=== PATIENT | male | born 1960 | race Caucasian/White ===

== ENCOUNTER 2021-06-07 21:45 | Inpatient (IN) | payer OTHER, MEDICAID ==
[~2021-06-07] VITALS: Ht 182.9 cm; Wt 109.0 kg
[2021-06-07] MEDS ORDERED: FUROSEMIDE 40 MG/4 ML VIAL IV ONE (22:00)
[2021-06-07 22:10] LABS: Basophils # (auto) 0.1 10 ^3/uL (0-0.2); Basophils % (auto) 0.8 % (0.0-2.0); Eosinophils # (auto) 0 10 ^3/uL (0-0.8); Eosinophils % (auto) 0.5 % (0.0-7.0); Hematocrit 40.4 % (41.0-53.0); Hemoglobin 12.7 g/dL (13.5-17.5); Lymphocytes # (auto) 0.8 10 ^3/uL (0.4-5.4); Lymphocytes % (auto) 7.7 % (10.0-50.0); Mean Corpuscular Hemoglobin 27.7 pg (28.0-32.0); Mean Corpuscular Hgb Conc. 31.5 g/dL (32.0-36.0); Mean Corpuscular Volume 88.1 fL (80.0-100.0); Monocytes % (auto) 10.2 % (0.0-12.0); Neutrophils # (auto) 7.9 10 ^3/uL (1.6-8.6); Neutrophils % (auto) 80.8 % (37.0-80.0); Nucleated Red Blood Cells % 0.1 %; Red Blood Cells 4.59 10^6/uL (4.5-5.90); Red Cell Distribution Width 14.6 % (11.8-14.3); White Blood Cell 9.8 10^3/uL (4.4-10.8)
[2021-06-07 22:19] VITALS: BP 142/70
[2021-06-07 22:27] LABS: Albumin 2.4 g/dL (3.4-5.0); BUN/Creatinine Ratio 16.6; Calcium 8.4 mg/dL (8.5-10.1); Magnesium 2.4 mg/dL (1.6-2.6)
[2021-06-07 22:36] LABS: INR 0.99 (0.9-1.15); Partial Thromboplastin Time 25.9 sec (23.6-33.0)
[2021-06-07 22:38] LABS: Bilirubin, Total 0.2 mg/dL (0.2-1.0); Total Protein 6.8 g/dL (6.4-8.2)
[2021-06-07 22:43] LABS: Potassium 6.6 mmol/L (3.5-5.1)
[2021-06-07] MEDS ORDERED: DEXTROSE (50%) 50ML SYRG IV ONE (23:00)
[2021-06-07] MEDS ORDERED: InsuLIN REG 1unit/0.01ml Soln (100units/ml) IV ONE (23:00)
[2021-06-07] MEDS ORDERED: ALBUTEROL SULF 2.5 MG/0.5ML(0.5%) NEB SOLN NEB ONE (23:00)
[2021-06-07] MEDS ORDERED: ENOXAPARIN SOD 100 MG/1 ML SYRINGE SC ONE (23:15)
[2021-06-08] VITALS (14 sets, daily range): BP systolic 94–152; BP diastolic 55–76
[2021-06-08] MEDS ORDERED: DOCUSATE SOD 100 MG CAP PO PRN (00:45)
[2021-06-08] MEDS ORDERED: ONDANSETRON HCL 4 MG/2 ML VIAL IV PRN (00:45)
[2021-06-08] MEDS ORDERED: HYDROcodone-ACET 5/325MG TAB PO PRN (00:45)
[2021-06-08] MEDS ORDERED: DEXTROSE (50%) 50ML SYRG IV PRN (00:45)
[2021-06-08] MEDS ORDERED: SODIUM ZIRCONIUM CYCL 10 GM PAK PO ONE ×2 (00:45→09:00)
[2021-06-08] MEDS ORDERED: NITROGLYCERIN 0.4 MG SL TAB SL PRN (00:45)
[2021-06-08] MEDS ORDERED: ETOMIDATE (2MG/ML) 20ML VIAL IV ONE ×2 (01:50→02:00)
[2021-06-08] MEDS ORDERED: ROCURONIUM 10MG/ML 10ML VIAL IV ONE ×2 (01:50→02:00)
[2021-06-08] MEDS ORDERED: MIDAZOLAM DRIP 50 mg/50mL 50 ML IV ONE (01:51)
[2021-06-08] MEDS: NOREPINEPHRINE 8 MG/250ML KIT 250 ML IV SCH ×2 (02:00→08:26)
[2021-06-08] MEDS: MIDAZOLAM DRIP 50 mg/50mL 50 ML IV SCH ×4 (02:26→20:51)
[2021-06-08 03:43] LABS: Urine Bacteria NONE SEEN /hpf (None Seen); Urine Blood 1+ /uL (Negative); Urine Specific Gravity 1.014 (1.001-1.035); Urine WBC 1 /hpf (0 - 3)
[2021-06-08] MEDS ORDERED: AZITHROMYCIN 500MG/ 250ML 250 ML IV SCH (04:00)
[2021-06-08] MEDS: fentaNYL Drip 2500mCg/250mlNS 250 ML IV SCH (04:40)
[2021-06-08] MEDS: FUROSEMIDE 40 MG/4 ML VIAL IV SCH ×2 (06:15→17:16)
[2021-06-08] MEDS: SODIUM CHLOR 0.9% PF (SALINE LOCK) 10ML VIAL/SYR IV SCH ×3 (06:17→22:00)
[2021-06-08] MEDS: InsuLIN REG 1unit/0.01ml Soln (100units/ml) SC SCH ×4 (07:00→23:07)
[2021-06-08] MEDS: ACCU-CHEK COMFORT CURVE STRIP VI SCH ×4 (07:00→22:00)
[2021-06-08 08:12] LABS: Basophils # (auto) 0.1 10 ^3/uL (0-0.2); Basophils % (auto) 1.5 % (0.0-2.0); Eosinophils # (auto) 0.1 10 ^3/uL (0-0.8); Eosinophils % (auto) 1.1 % (0.0-7.0); Hematocrit 34.7 % (41.0-53.0); Lymphocytes # (auto) 1.4 10 ^3/uL (0.4-5.4); Lymphocytes % (auto) 16.5 % (10.0-50.0); Mean Corpuscular Hemoglobin 27.9 pg (28.0-32.0); Mean Corpuscular Hgb Conc. 31.7 g/dL (32.0-36.0); Mean Corpuscular Volume 87.9 fL (80.0-100.0); Monocytes # (auto) 0.8 10 ^3/uL (0-1.3); Monocytes % (auto) 8.7 % (0.0-12.0); Neutrophils # (auto) 6.3 10 ^3/uL (1.6-8.6); Neutrophils % (auto) 72.2 % (37.0-80.0); Red Blood Cells 3.95 10^6/uL (4.5-5.90); Red Cell Distribution Width 14.6 % (11.8-14.3); White Blood Cell 8.7 10^3/uL (4.4-10.8)
[2021-06-08] MEDS: ASCORBIC ACID 500 MG TAB PO SCH ×2 (08:14→22:00)
[2021-06-08] MEDS: MULTIPLE VITAMIN TAB PO SCH (08:15)
[2021-06-08] MEDS: ZINC SULFATE 220mg CAP or TAB PO SCH (08:15)
[2021-06-08 08:29] LABS: Albumin 1.9 g/dL (3.4-5.0); Calcium 7.6 mg/dL (8.5-10.1)
[2021-06-08 08:35] LABS: Potassium 6.4 mmol/L (3.5-5.1)
[2021-06-08 08:36] LABS: BUN/Creatinine Ratio 17.3; Bilirubin, Total 0.4 mg/dL (0.2-1.0); Total Protein 5.9 g/dL (6.4-8.2)
[2021-06-08] MEDS ORDERED: CALCIUM GLUC 1,000mg/50ml-NS 50 ML IV ONE (09:00)
[2021-06-08] MEDS ORDERED: ALBUTEROL SULF 2.5 MG/0.5ML(0.5%) NEB SOLN NEB ONE (09:00)
[2021-06-08] MEDS ORDERED: InsuLIN REG 1unit/0.01ml Soln (100units/ml) IV ONE (09:00)
[2021-06-08] MEDS ORDERED: SODIUM BICARBONATE 8.4 % INJ 50ML VIAL IV ONE (09:00)
[2021-06-08] MEDS ORDERED: DEXTROSE (25%) 10 ML SYRG IV ONE (09:00)
[2021-06-08] MEDS ORDERED: FUROSEMIDE 100 MG/10ML VIAL IV ONE (09:15)
[2021-06-08] MEDS ORDERED: SODIUM ZIRCONIUM CYCL 10 GM PAK PO SCH (10:00)
[2021-06-08] MEDS ORDERED: HEPARIN SODIUM (PORCINE) 5000 UNITS/ML 1ML VIAL SC SCH (10:00)
[2021-06-08] MEDS ORDERED: FAMOTIDINE (10MG/ML) 2ML VL IV SCH (10:00)
[2021-06-08] MEDS: SODIUM BICARBONATE 50ML VIAL 50 ML in SOD CHL 0.45% 1,000 ML IV SCH ×2 (10:26→23:15)
[2021-06-08] MEDS ORDERED: ENOXAPARIN SOD 100 MG/1 ML SYRINGE SC ONE (11:45)
[2021-06-08] MEDS ORDERED: VANCOMYCIN PER PHARMACY 0 MG IV SCH (14:00)
[2021-06-08] MEDS ORDERED: PIPERACILLIN-TAZOB 3.375GM 100 ML IV ONE (14:00)
[2021-06-08] MEDS: SODIUM ZIRCONIUM CYCL 10 GM PAK PO SCH ×2 (14:15→22:00)
[2021-06-08] MEDS: ACETAMINOPHEN 325 MG TAB PO PRN (16:21)
[2021-06-08 16:54] LABS: BUN/Creatinine Ratio 17.3; Calcium 8.4 mg/dL (8.5-10.1); Potassium 5.5 mmol/L (3.5-5.1)
[2021-06-08] MEDS ORDERED: VANCOMYCIN 1GM/250ML 250 ML IV ONE (17:00)
[2021-06-08] MEDS ORDERED: FUROSEMIDE 100 MG/10ML VIAL IV SCH (18:00)
[2021-06-08 18:53] LABS: Calcium 8.3 mg/dL (8.5-10.1); Potassium 5.2 mmol/L (3.5-5.1)
[2021-06-08 18:58] LABS: BUN/Creatinine Ratio 16.6
[2021-06-08] MEDS: PIPERACILLIN-TAZOB 3.375GM 100 ML IV SCH (20:50)
[2021-06-08] MEDS: ENOXAPARIN SOD 150 MG/1 ML SYRINGE SC SCH (22:00)
[2021-06-09] VITALS (97 sets, daily range): BP systolic 91–185; BP diastolic 48–100
[2021-06-09] MEDS: fentaNYL Drip 2500mCg/250mlNS 250 ML IV SCH ×2 (02:00→22:00)
[2021-06-09] MEDS: PIPERACILLIN-TAZOB 3.375GM 100 ML IV SCH (02:00)
[2021-06-09 04:12] LABS: Basophils # (auto) 0.1 10 ^3/uL (0-0.2); Basophils % (auto) 1.3 % (0.0-2.0); Eosinophils # (auto) 0.1 10 ^3/uL (0-0.8); Eosinophils % (auto) 1.3 % (0.0-7.0); Hemoglobin 12.2 g/dL (13.5-17.5); Lymphocytes # (auto) 1.1 10 ^3/uL (0.4-5.4); Lymphocytes % (auto) 11.5 % (10.0-50.0); Mean Corpuscular Hemoglobin 27.5 pg (28.0-32.0); Mean Corpuscular Hgb Conc. 31.4 g/dL (32.0-36.0); Mean Corpuscular Volume 87.7 fL (80.0-100.0); Monocytes # (auto) 1.1 10 ^3/uL (0-1.3); Monocytes % (auto) 11.8 % (0.0-12.0); Neutrophils # (auto) 7.2 10 ^3/uL (1.6-8.6); Neutrophils % (auto) 74.1 % (37.0-80.0); Nucleated Red Blood Cells % 0.1 %; Red Blood Cells 4.45 10^6/uL (4.5-5.90); Red Cell Distribution Width 14.5 % (11.8-14.3); White Blood Cell 9.7 10^3/uL (4.4-10.8)
[2021-06-09 04:26] LABS: INR 1.07 (0.9-1.15)
[2021-06-09 04:36] LABS: Calcium 8.3 mg/dL (8.5-10.1); Magnesium 2.7 mg/dL (1.6-2.6); Potassium 4.6 mmol/L (3.5-5.1)
[2021-06-09 04:43] LABS: BUN/Creatinine Ratio 16.4; Bilirubin, Total 0.4 mg/dL (0.2-1.0); Phosphorus 4.6 mg/dL (2.5-4.90); Total Protein 6.7 g/dL (6.4-8.2)
[2021-06-09] MEDS ORDERED: SODIUM BICARBONATE 8.4 % INJ 50ML VIAL IV ONE (04:51)
[2021-06-09] MEDS: SODIUM BICARBONATE 50ML VIAL 50 ML in SOD CHL 0.45% 1,000 ML IV SCH (04:59)
[2021-06-09] MEDS ORDERED: LABETALOL HCL 5 MG/ML 4ML SYRINGE IV ONE (05:00)
[2021-06-09] MEDS: FUROSEMIDE 40 MG/4 ML VIAL IV SCH ×2 (05:30→18:00)
[2021-06-09] MEDS: SODIUM ZIRCONIUM CYCL 10 GM PAK PO SCH ×3 (06:05→22:32)
[2021-06-09] MEDS: SODIUM CHLOR 0.9% PF (SALINE LOCK) 10ML VIAL/SYR IV SCH ×3 (06:05→21:57)
[2021-06-09] MEDS: InsuLIN REG 1unit/0.01ml Soln (100units/ml) SC SCH ×4 (06:06→22:13)
[2021-06-09] MEDS: ACCU-CHEK COMFORT CURVE STRIP VI SCH ×4 (06:06→22:00)
[2021-06-09] MEDS: ACETAMINOPHEN 325 MG TAB PO PRN (06:20)
[2021-06-09] MEDS: MIDAZOLAM DRIP 50 mg/50mL 50 ML IV SCH ×2 (06:49→15:53)
[2021-06-09] MEDS ORDERED: PROPOFOL 100 ML IV ONE (09:12)
[2021-06-09] MEDS: PROPOFOL 100 ML IV SCH (09:20)
[2021-06-09] MEDS: ASCORBIC ACID 500 MG TAB PO SCH (10:28)
[2021-06-09] MEDS: ZINC SULFATE 220mg CAP or TAB PO SCH (10:28)
[2021-06-09] MEDS: MULTIPLE VITAMIN TAB PO SCH (10:28)
[2021-06-09] MEDS: ENOXAPARIN SOD 150 MG/1 ML SYRINGE SC SCH (10:28)
[2021-06-09] MEDS: FAMOTIDINE (10MG/ML) 2ML VL IV SCH (10:28)
[2021-06-09] MEDS ORDERED: VANCOMYCIN 1GM/250ML 250 ML IV ONE (10:30)
[2021-06-09] MEDS ORDERED: VANCOMYCIN PER PHARMACY 0 MG IV SCH (10:30)
[2021-06-09] MEDS ORDERED: MEROPENEM 1GM IVPB 100 ML IV SCH (13:00)
[2021-06-09] MEDS ORDERED: CLINDAMYCIN 600MG IV 50 ML IV ONE (15:00)
[2021-06-09] MEDS ORDERED: INSULIN LANTUS (GLARGINE) 1 /0.01ml (100units/ml) SC ONE (15:00)
[2021-06-09] MEDS: CLINDAMYCIN 600MG IV 50 ML IV SCH (21:56)
[2021-06-09] MEDS: METOPROLOL TARTRATE 25 MG TAB PO SCH (21:57)
[2021-06-09] MEDS: INSULIN LANTUS (GLARGINE) 1 /0.01ml (100units/ml) SC SCH (22:11)
[2021-06-09] MEDS ORDERED: ROSU20TA14 PO (22:52)
[2021-06-09] MEDS ORDERED: INSUINJ2 SC (22:57)
[2021-06-09] MEDS ORDERED: INSREG3 SC (23:01)
[2021-06-09] MEDS ORDERED: AML5T GT (23:02)
[2021-06-09] MEDS ORDERED: HYDR25TA4 PO (23:02)
[2021-06-09] MEDS ORDERED: ASPI325T4 PO (23:04)
[2021-06-09] MEDS ORDERED: CICL160A2 IN (23:05)
[2021-06-09] MEDS ORDERED: ALBUAER3 IN (23:07)
[2021-06-10] VITALS (98 sets, daily range): BP systolic 91–160; BP diastolic 48–103
[2021-06-10] MEDS: NOREPINEPHRINE 8 MG/250ML KIT 250 ML IV SCH ×2 (02:00→21:46)
[2021-06-10 04:40] LABS: Basophils # (auto) 0.1 10 ^3/uL (0-0.2); Eosinophils # (auto) 0.2 10 ^3/uL (0-0.8); Eosinophils % (auto) 1.7 % (0.0-7.0); Hematocrit 35.9 % (41.0-53.0); Hemoglobin 11.6 g/dL (13.5-17.5); Lymphocytes # (auto) 1.1 10 ^3/uL (0.4-5.4); Lymphocytes % (auto) 8.9 % (10.0-50.0); Mean Corpuscular Hemoglobin 28.2 pg (28.0-32.0); Mean Corpuscular Hgb Conc. 32.4 g/dL (32.0-36.0); Mean Corpuscular Volume 86.9 fL (80.0-100.0); Monocytes # (auto) 1.5 10 ^3/uL (0-1.3); Monocytes % (auto) 11.7 % (0.0-12.0); Neutrophils # (auto) 9.7 10 ^3/uL (1.6-8.6); Neutrophils % (auto) 76.7 % (37.0-80.0); Red Blood Cells 4.13 10^6/uL (4.5-5.90); Red Cell Distribution Width 14.4 % (11.8-14.3); White Blood Cell 12.7 10^3/uL (4.4-10.8)
[2021-06-10 04:53] LABS: Albumin 1.7 g/dL (3.4-5.0); Calcium 8.5 mg/dL (8.5-10.1); Potassium 4.3 mmol/L (3.5-5.1)
[2021-06-10 04:58] LABS: Bilirubin, Total 0.4 mg/dL (0.2-1.0); Total Protein 6.3 g/dL (6.4-8.2)
[2021-06-10] MEDS: PROPOFOL 100 ML IV SCH ×2 (05:00→08:38)
[2021-06-10] MEDS: CLINDAMYCIN 600MG IV 50 ML IV SCH ×3 (05:58→22:00)
[2021-06-10] MEDS: SODIUM ZIRCONIUM CYCL 10 GM PAK PO SCH (05:59)
[2021-06-10] MEDS: ACCU-CHEK COMFORT CURVE STRIP VI SCH ×4 (05:59→22:00)
[2021-06-10] MEDS: SODIUM CHLOR 0.9% PF (SALINE LOCK) 10ML VIAL/SYR IV SCH ×3 (05:59→22:00)
[2021-06-10] MEDS: FUROSEMIDE 40 MG/4 ML VIAL IV SCH ×2 (05:59→17:29)
[2021-06-10] MEDS: InsuLIN REG 1unit/0.01ml Soln (100units/ml) SC SCH ×4 (06:00→22:00)
[2021-06-10] MEDS: INSULIN LANTUS (GLARGINE) 1 /0.01ml (100units/ml) SC SCH ×2 (06:02→22:00)
[2021-06-10] MEDS: FAMOTIDINE (10MG/ML) 2ML VL IV SCH (08:36)
[2021-06-10] MEDS: ENOXAPARIN SOD 150 MG/1 ML SYRINGE SC SCH (08:37)
[2021-06-10] MEDS: fentaNYL Drip 2500mCg/250mlNS 250 ML IV SCH ×2 (08:38→23:03)
[2021-06-10] MEDS: MIDAZOLAM DRIP 50 mg/50mL 50 ML IV SCH ×4 (08:39→23:04)
[2021-06-10] MEDS ORDERED: cefTRIAXone 1GM/50ML D5W 50 ML IV SCH (09:00)
[2021-06-10] MEDS: METOPROLOL TARTRATE 25 MG TAB PO SCH ×2 (12:31→22:00)
[2021-06-10] MEDS ORDERED: levoFLOXacin 250MG 50 ML IV ONE (13:15)
[2021-06-10] MEDS ORDERED: AMIODARONE HCL 200 MG TAB PO ONE (13:15)
[2021-06-10] MEDS: ACETAMINOPHEN 325 MG TAB PO PRN (14:29)
[2021-06-10] MEDS: AMIODARONE HCL 200 MG TAB PO SCH (22:00)
[2021-06-11] VITALS (91 sets, daily range): BP systolic 92–149; BP diastolic 45–73
[2021-06-11 04:18] LABS: Basophils # (auto) 0.1 10 ^3/uL (0-0.2); Basophils % (auto) 0.5 % (0.0-2.0); Eosinophils # (auto) 0.2 10 ^3/uL (0-0.8); Eosinophils % (auto) 1.8 % (0.0-7.0); Hematocrit 34.7 % (41.0-53.0); Lymphocytes # (auto) 1.1 10 ^3/uL (0.4-5.4); Mean Corpuscular Hemoglobin 27.6 pg (28.0-32.0); Mean Corpuscular Hgb Conc. 31.8 g/dL (32.0-36.0); Monocytes # (auto) 1.2 10 ^3/uL (0-1.3); Neutrophils # (auto) 7.7 10 ^3/uL (1.6-8.6); Neutrophils % (auto) 74.7 % (37.0-80.0); Nucleated Red Blood Cells % 0.1 %; Red Blood Cells 3.99 10^6/uL (4.5-5.90); Red Cell Distribution Width 14.5 % (11.8-14.3); White Blood Cell 10.3 10^3/uL (4.4-10.8)
[2021-06-11 04:38] LABS: Calcium 8.5 mg/dL (8.5-10.1); Potassium 4.4 mmol/L (3.5-5.1)
[2021-06-11 04:41] LABS: Albumin 1.4 g/dL (3.4-5.0); BUN/Creatinine Ratio 15.3
[2021-06-11 04:46] LABS: Bilirubin, Total 0.3 mg/dL (0.2-1.0); Total Protein 6.3 g/dL (6.4-8.2)
[2021-06-11] MEDS: FUROSEMIDE 40 MG/4 ML VIAL IV SCH (06:00)
[2021-06-11] MEDS: SODIUM CHLOR 0.9% PF (SALINE LOCK) 10ML VIAL/SYR IV SCH ×3 (06:00→22:00)
[2021-06-11] MEDS: CLINDAMYCIN 600MG IV 50 ML IV SCH ×3 (06:00→21:36)
[2021-06-11] MEDS: MIDAZOLAM DRIP 50 mg/50mL 50 ML IV SCH ×3 (06:58→18:59)
[2021-06-11] MEDS: ACCU-CHEK COMFORT CURVE STRIP VI SCH ×4 (08:43→22:00)
[2021-06-11] MEDS: InsuLIN REG 1unit/0.01ml Soln (100units/ml) SC SCH ×4 (08:44→21:55)
[2021-06-11] MEDS: INSULIN LANTUS (GLARGINE) 1 /0.01ml (100units/ml) SC SCH ×2 (08:44→21:37)
[2021-06-11] MEDS ORDERED: metOLazone 5 MG TAB PO ONE (09:45)
[2021-06-11] MEDS: METOPROLOL TARTRATE 25 MG TAB PO SCH ×2 (10:00→21:54)
[2021-06-11] MEDS: levoFLOXacin 250MG 50 ML IV SCH (11:03)
[2021-06-11] MEDS: ALBUMIN 25% 100 ML IV SCH ×2 (11:03→18:21)
[2021-06-11] MEDS: PROPOFOL 100 ML IV SCH ×2 (11:04→17:00)
[2021-06-11] MEDS: ENOXAPARIN SOD 150 MG/1 ML SYRINGE SC SCH (11:04)
[2021-06-11] MEDS: FAMOTIDINE (10MG/ML) 2ML VL IV SCH (11:33)
[2021-06-11] MEDS: AMIODARONE HCL 200 MG TAB PO SCH ×2 (11:33→21:53)
[2021-06-11] MEDS: FUROSEMIDE INJECTION 100 MG in SODIUM CHL 0.9% 100 ML IV SCH ×3 (11:41→21:00)
[2021-06-11] MEDS: fentaNYL Drip 2500mCg/250mlNS 250 ML IV SCH (12:14)
[2021-06-11] MEDS ORDERED: METOCLOPRAMIDE HCL 5MG/ml INJ 2ml VIAL IV ONE (14:00)
[2021-06-11] MEDS ORDERED: METOCLOPRAMIDE HCL 5MG/ml INJ 2ml VIAL IV PRN (22:00)
[2021-06-12] VITALS (101 sets, daily range): BP systolic 95–164; BP diastolic 48–94
[2021-06-12] MEDS: FUROSEMIDE INJECTION 100 MG in SODIUM CHL 0.9% 100 ML IV SCH ×5 (01:57→22:30)
[2021-06-12] MEDS: ALBUMIN 25% 100 ML IV SCH (01:58)
[2021-06-12] MEDS: PROPOFOL 100 ML IV SCH ×2 (01:59→18:55)
[2021-06-12] MEDS: fentaNYL Drip 2500mCg/250mlNS 250 ML IV SCH (02:01)
[2021-06-12] MEDS: MIDAZOLAM DRIP 50 mg/50mL 50 ML IV SCH ×2 (02:02→06:45)
[2021-06-12 04:38] LABS: Basophils # (auto) 0.1 10 ^3/uL (0-0.2); Basophils % (auto) 1.4 % (0.0-2.0); Eosinophils # (auto) 0.2 10 ^3/uL (0-0.8); Eosinophils % (auto) 2.8 % (0.0-7.0); Hematocrit 31.1 % (41.0-53.0); Hemoglobin 10.2 g/dL (13.5-17.5); Lymphocytes # (auto) 1.1 10 ^3/uL (0.4-5.4); Mean Corpuscular Hemoglobin 28.2 pg (28.0-32.0); Mean Corpuscular Hgb Conc. 32.9 g/dL (32.0-36.0); Mean Corpuscular Volume 85.8 fL (80.0-100.0); Monocytes # (auto) 1.1 10 ^3/uL (0-1.3); Monocytes % (auto) 13.8 % (0.0-12.0); Neutrophils # (auto) 5.6 10 ^3/uL (1.6-8.6); Red Blood Cells 3.62 10^6/uL (4.5-5.90); Red Cell Distribution Width 14.3 % (11.8-14.3); White Blood Cell 8.1 10^3/uL (4.4-10.8)
[2021-06-12 05:03] LABS: Potassium 3.7 mmol/L (3.5-5.1)
[2021-06-12 05:10] LABS: BUN/Creatinine Ratio 16.7; Calcium 8.8 mg/dL (8.5-10.1)
[2021-06-12] MEDS: CLINDAMYCIN 600MG IV 50 ML IV SCH ×3 (05:58→22:00)
[2021-06-12] MEDS: SODIUM CHLOR 0.9% PF (SALINE LOCK) 10ML VIAL/SYR IV SCH ×3 (06:02→22:00)
[2021-06-12] MEDS: ACCU-CHEK COMFORT CURVE STRIP VI SCH ×4 (06:02→22:00)
[2021-06-12] MEDS: InsuLIN REG 1unit/0.01ml Soln (100units/ml) SC SCH ×4 (06:04→22:00)
[2021-06-12] MEDS: INSULIN LANTUS (GLARGINE) 1 /0.01ml (100units/ml) SC SCH ×2 (06:06→22:00)
[2021-06-12] MEDS: NOREPINEPHRINE 8 MG/250ML KIT 250 ML IV SCH (07:49)
[2021-06-12] MEDS: Nepro With Carb Steady 1 Liter Bottle GT SCH (09:59)
[2021-06-12] MEDS ORDERED: FUROSEMIDE 40 MG/4 ML VIAL IV SCH (10:00)
[2021-06-12] MEDS: METOPROLOL TARTRATE 25 MG TAB PO SCH ×2 (10:41→22:00)
[2021-06-12] MEDS: levoFLOXacin 250MG 50 ML IV SCH (11:10)
[2021-06-12] MEDS: FAMOTIDINE (10MG/ML) 2ML VL IV SCH (11:10)
[2021-06-12] MEDS: ENOXAPARIN SOD 150 MG/1 ML SYRINGE SC SCH (11:11)
[2021-06-12] MEDS: AMIODARONE HCL 200 MG TAB PO SCH ×2 (11:11→22:00)
[2021-06-12] MEDS: ALBUMIN 25% 50 ML IV SCH ×2 (16:18→23:14)
[2021-06-12] MEDS: POTASSIUM EFFERVESENT TAB 25 MEQ GT SCH (22:00)
[2021-06-13] VITALS (100 sets, daily range): BP systolic 92–224; BP diastolic 49–116
[2021-06-13] MEDS: NOREPINEPHRINE 8 MG/250ML KIT 250 ML IV SCH (02:00)
[2021-06-13] MEDS: FUROSEMIDE INJECTION 100 MG in SODIUM CHL 0.9% 100 ML IV SCH (02:30)
[2021-06-13] MEDS: PROPOFOL 100 ML IV SCH ×3 (04:00→21:44)
[2021-06-13 04:48] LABS: Basophils # (auto) 0.1 10 ^3/uL (0-0.2); Eosinophils # (auto) 0.3 10 ^3/uL (0-0.8); Eosinophils % (auto) 3.4 % (0.0-7.0); Hematocrit 34.3 % (41.0-53.0); Hemoglobin 11.4 g/dL (13.5-17.5); Lymphocytes # (auto) 0.8 10 ^3/uL (0.4-5.4); Lymphocytes % (auto) 10.4 % (10.0-50.0); Mean Corpuscular Hemoglobin 28.1 pg (28.0-32.0); Mean Corpuscular Hgb Conc. 33.2 g/dL (32.0-36.0); Mean Corpuscular Volume 84.7 fL (80.0-100.0); Monocytes # (auto) 0.9 10 ^3/uL (0-1.3); Neutrophils # (auto) 5.5 10 ^3/uL (1.6-8.6); Neutrophils % (auto) 73.2 % (37.0-80.0); Nucleated Red Blood Cells % 0.1 %; Red Blood Cells 4.05 10^6/uL (4.5-5.90); Red Cell Distribution Width 14.4 % (11.8-14.3); White Blood Cell 7.5 10^3/uL (4.4-10.8)
[2021-06-13] MEDS: fentaNYL Drip 2500mCg/250mlNS 250 ML IV SCH (04:58)
[2021-06-13] MEDS: CLINDAMYCIN 600MG IV 50 ML IV SCH ×3 (05:07→21:45)
[2021-06-13 05:09] LABS: Calcium 9.7 mg/dL (8.5-10.1); Potassium 3.8 mmol/L (3.5-5.1)
[2021-06-13 05:12] LABS: BUN/Creatinine Ratio 19.9
[2021-06-13] MEDS: INSULIN LANTUS (GLARGINE) 1 /0.01ml (100units/ml) SC SCH ×2 (06:00→21:48)
[2021-06-13] MEDS: InsuLIN REG 1unit/0.01ml Soln (100units/ml) SC SCH ×4 (06:00→23:40)
[2021-06-13] MEDS: SODIUM CHLOR 0.9% PF (SALINE LOCK) 10ML VIAL/SYR IV SCH ×3 (06:23→21:45)
[2021-06-13] MEDS: ACCU-CHEK COMFORT CURVE STRIP VI SCH ×4 (06:23→23:37)
[2021-06-13] MEDS: METOPROLOL TARTRATE 25 MG TAB PO SCH ×3 (09:29→21:43)
[2021-06-13] MEDS: POTASSIUM EFFERVESENT TAB 25 MEQ GT SCH ×2 (10:25→21:42)
[2021-06-13] MEDS: levoFLOXacin 250MG 50 ML IV SCH (10:25)
[2021-06-13] MEDS: AMIODARONE HCL 200 MG TAB PO SCH ×2 (10:26→21:42)
[2021-06-13] MEDS: ENOXAPARIN SOD 150 MG/1 ML SYRINGE SC SCH (10:26)
[2021-06-13] MEDS: FAMOTIDINE (10MG/ML) 2ML VL IV SCH (10:26)
[2021-06-13] MEDS ORDERED: METOPROLOL TARTRATE 25 MG TAB PO ONE (13:15)
[2021-06-13] MEDS ORDERED: DEXTROSE (50%) 50ML SYRG IV PRN (13:15)
[2021-06-14] VITALS (102 sets, daily range): BP systolic 78–188; BP diastolic 44–87
[2021-06-14] MEDS: fentaNYL Drip 2500mCg/250mlNS 250 ML IV SCH (02:00)
[2021-06-14] MEDS: MIDAZOLAM DRIP 50 mg/50mL 50 ML IV SCH (02:00)
[2021-06-14] MEDS: PROPOFOL 100 ML IV SCH ×4 (02:00→21:53)
[2021-06-14] MEDS: NOREPINEPHRINE 8 MG/250ML KIT 250 ML IV SCH ×2 (02:00→12:09)
[2021-06-14 04:28] LABS: Basophils # (auto) 0 10 ^3/uL (0-0.2); Basophils % (auto) 0.5 % (0.0-2.0); Eosinophils # (auto) 0.2 10 ^3/uL (0-0.8); Eosinophils % (auto) 2.8 % (0.0-7.0); Hematocrit 36.7 % (41.0-53.0); Hemoglobin 11.9 g/dL (13.5-17.5); Lymphocytes # (auto) 1.2 10 ^3/uL (0.4-5.4); Lymphocytes % (auto) 13.6 % (10.0-50.0); Mean Corpuscular Hemoglobin 27.6 pg (28.0-32.0); Mean Corpuscular Hgb Conc. 32.4 g/dL (32.0-36.0); Mean Corpuscular Volume 85.1 fL (80.0-100.0); Monocytes # (auto) 1.2 10 ^3/uL (0-1.3); Neutrophils % (auto) 69.1 % (37.0-80.0); Nucleated Red Blood Cells % 0.1 %; Red Blood Cells 4.31 10^6/uL (4.5-5.90); Red Cell Distribution Width 14.1 % (11.8-14.3); White Blood Cell 8.6 10^3/uL (4.4-10.8)
[2021-06-14 04:49] LABS: Albumin 2.1 g/dL (3.4-5.0); Calcium 9.4 mg/dL (8.5-10.1); Potassium 3.6 mmol/L (3.5-5.1)
[2021-06-14 04:54] LABS: BUN/Creatinine Ratio 22.9; Bilirubin, Total 0.3 mg/dL (0.2-1.0); Total Protein 6.8 g/dL (6.4-8.2)
[2021-06-14] MEDS: ACCU-CHEK COMFORT CURVE STRIP VI SCH ×4 (05:56→23:59)
[2021-06-14] MEDS: CLINDAMYCIN 600MG IV 50 ML IV SCH ×3 (05:56→21:30)
[2021-06-14] MEDS: SODIUM CHLOR 0.9% PF (SALINE LOCK) 10ML VIAL/SYR IV SCH ×3 (05:56→21:30)
[2021-06-14] MEDS: InsuLIN REG 1unit/0.01ml Soln (100units/ml) SC SCH ×3 (05:59→17:48)
[2021-06-14] MEDS: INSULIN LANTUS (GLARGINE) 1 /0.01ml (100units/ml) SC SCH ×2 (06:58→21:42)
[2021-06-14] MEDS: METOPROLOL TARTRATE 25 MG TAB PO SCH ×3 (10:00→23:58)
[2021-06-14] MEDS: hydrALAZINE HCL 20 MG/ML VL IV PRN (10:50)
[2021-06-14] MEDS: levoFLOXacin 250MG 50 ML IV SCH (11:04)
[2021-06-14] MEDS: FAMOTIDINE (10MG/ML) 2ML VL IV SCH (11:05)
[2021-06-14] MEDS: POTASSIUM EFFERVESENT TAB 25 MEQ GT SCH ×2 (12:26→21:27)
[2021-06-14] MEDS: AMIODARONE HCL 200 MG TAB PO SCH ×2 (12:27→21:29)
[2021-06-14] MEDS: ENOXAPARIN SOD 150 MG/1 ML SYRINGE SC SCH (12:27)
[2021-06-14] MEDS: Nepro With Carb Steady 1 Liter Bottle GT SCH (17:15)
[2021-06-14] MEDS: FREE WATER GT SCH ×2 (17:50→23:59)
[2021-06-15] VITALS (100 sets, daily range): BP systolic 89–177; BP diastolic 45–86
[2021-06-15] MEDS: InsuLIN REG 1unit/0.01ml Soln (100units/ml) SC SCH ×4 (00:05→17:40)
[2021-06-15] MEDS: Nepro With Carb Steady 1 Liter Bottle GT SCH ×2 (00:15→16:50)
[2021-06-15] MEDS: fentaNYL Drip 2500mCg/250mlNS 250 ML IV SCH (02:00)
[2021-06-15] MEDS: MIDAZOLAM DRIP 50 mg/50mL 50 ML IV SCH (02:00)
[2021-06-15] MEDS: PROPOFOL 100 ML IV SCH ×6 (02:00→21:31)
[2021-06-15 04:37] LABS: Calcium 9.1 mg/dL (8.5-10.1); Potassium 3.8 mmol/L (3.5-5.1)
[2021-06-15 04:40] LABS: BUN/Creatinine Ratio 24.2
[2021-06-15] MEDS: ACCU-CHEK COMFORT CURVE STRIP VI SCH ×3 (05:21→16:50)
[2021-06-15] MEDS: CLINDAMYCIN 600MG IV 50 ML IV SCH ×3 (05:22→21:36)
[2021-06-15] MEDS: SODIUM CHLOR 0.9% PF (SALINE LOCK) 10ML VIAL/SYR IV SCH ×3 (05:22→21:29)
[2021-06-15] MEDS: FREE WATER GT SCH ×4 (05:22→23:42)
[2021-06-15] MEDS: INSULIN LANTUS (GLARGINE) 1 /0.01ml (100units/ml) SC SCH ×2 (06:52→21:35)
[2021-06-15] MEDS: POTASSIUM EFFERVESENT TAB 25 MEQ GT SCH ×2 (10:38→21:29)
[2021-06-15] MEDS: levoFLOXacin 250MG 50 ML IV SCH (10:38)
[2021-06-15] MEDS: FAMOTIDINE (10MG/ML) 2ML VL IV SCH (10:38)
[2021-06-15] MEDS: ENOXAPARIN SOD 150 MG/1 ML SYRINGE SC SCH (10:38)
[2021-06-15] MEDS: AMIODARONE HCL 200 MG TAB PO SCH ×2 (11:38→21:29)
[2021-06-15] MEDS ORDERED: SODIUM CHLORIDE 0.9% 500 ML IV ONE (15:45)
[2021-06-15] MEDS ORDERED: SODIUM CHLORIDE 0.9% 1,000 ML IV ONE (15:45)
[2021-06-15] MEDS: METOPROLOL TARTRATE 25 MG TAB PO SCH (21:30)
[2021-06-16] VITALS (103 sets, daily range): BP systolic 84–151; BP diastolic 34–71
[2021-06-16] MEDS: ACCU-CHEK COMFORT CURVE STRIP VI SCH ×4 (00:28→17:54)
[2021-06-16] MEDS: PROPOFOL 100 ML IV SCH ×4 (00:30→18:10)
[2021-06-16] MEDS: InsuLIN REG 1unit/0.01ml Soln (100units/ml) SC SCH ×5 (00:59→23:27)
[2021-06-16] MEDS: MORPHINE SULFATE INJECTION 2 MG/ML SYRG IV PRN (01:20)
[2021-06-16] MEDS: fentaNYL Drip 2500mCg/250mlNS 250 ML IV SCH ×2 (02:44→18:10)
[2021-06-16 04:32] LABS: Basophils # (auto) 0.1 10 ^3/uL (0-0.2); Basophils % (auto) 1.1 % (0.0-2.0); Eosinophils # (auto) 0.5 10 ^3/uL (0-0.8); Eosinophils % (auto) 6.4 % (0.0-7.0); Hematocrit 33.8 % (41.0-53.0); Hemoglobin 11.2 g/dL (13.5-17.5); Lymphocytes # (auto) 1.6 10 ^3/uL (0.4-5.4); Lymphocytes % (auto) 20.6 % (10.0-50.0); Mean Corpuscular Hemoglobin 28.6 pg (28.0-32.0); Mean Corpuscular Hgb Conc. 33.2 g/dL (32.0-36.0); Mean Corpuscular Volume 86.2 fL (80.0-100.0); Monocytes # (auto) 0.9 10 ^3/uL (0-1.3); Monocytes % (auto) 11.8 % (0.0-12.0); Neutrophils # (auto) 4.7 10 ^3/uL (1.6-8.6); Neutrophils % (auto) 60.1 % (37.0-80.0); Nucleated Red Blood Cells % 0.1 %; Red Blood Cells 3.92 10^6/uL (4.5-5.90); Red Cell Distribution Width 14.3 % (11.8-14.3); White Blood Cell 7.8 10^3/uL (4.4-10.8)
[2021-06-16 04:48] LABS: INR 1.07 (0.9-1.15); Partial Thromboplastin Time 26.1 sec (23.6-33.0)
[2021-06-16 04:50] LABS: Albumin 1.7 g/dL (3.4-5.0); Potassium 3.9 mmol/L (3.5-5.1)
[2021-06-16 05:01] LABS: BUN/Creatinine Ratio 26.3; Bilirubin, Total 0.2 mg/dL (0.2-1.0); Calcium 8.2 mg/dL (8.5-10.1); Magnesium 3.2 mg/dL (1.6-2.6); Phosphorus 5.4 mg/dL (2.5-4.90)
[2021-06-16] MEDS: CLINDAMYCIN 600MG IV 50 ML IV SCH ×3 (05:41→21:10)
[2021-06-16] MEDS: FREE WATER GT SCH ×4 (05:41→23:27)
[2021-06-16] MEDS: INSULIN LANTUS (GLARGINE) 1 /0.01ml (100units/ml) SC SCH ×2 (05:45→21:14)
[2021-06-16] MEDS: NOREPINEPHRINE 8 MG/250ML KIT 250 ML IV SCH (08:12)
[2021-06-16] MEDS: MIDAZOLAM DRIP 50 mg/50mL 50 ML IV SCH (08:12)
[2021-06-16] MEDS: SODIUM CHLOR 0.9% PF (SALINE LOCK) 10ML VIAL/SYR IV SCH ×3 (08:13→21:10)
[2021-06-16] MEDS: METOPROLOL TARTRATE 25 MG TAB PO SCH ×2 (10:00→21:10)
[2021-06-16] MEDS: POTASSIUM EFFERVESENT TAB 25 MEQ GT SCH ×2 (10:34→21:10)
[2021-06-16] MEDS: levoFLOXacin 250MG 50 ML IV SCH (10:35)
[2021-06-16] MEDS: FAMOTIDINE (10MG/ML) 2ML VL IV SCH (10:39)
[2021-06-16] MEDS: AMIODARONE HCL 200 MG TAB PO SCH ×2 (10:42→21:10)
[2021-06-16] MEDS: ENOXAPARIN SOD 150 MG/1 ML SYRINGE SC SCH (10:43)
[2021-06-17] VITALS (107 sets, daily range): BP systolic 81–166; BP diastolic 45–77
[2021-06-17] MEDS: PROPOFOL 100 ML IV SCH ×6 (01:31→20:31)
[2021-06-17] MEDS: MIDAZOLAM DRIP 50 mg/50mL 50 ML IV SCH (02:00)
[2021-06-17 04:39] LABS: Basophils # (auto) 0.1 10 ^3/uL (0-0.2); Basophils % (auto) 1.1 % (0.0-2.0); Eosinophils # (auto) 0.5 10 ^3/uL (0-0.8); Eosinophils % (auto) 6.4 % (0.0-7.0); Hematocrit 37.2 % (41.0-53.0); Hemoglobin 12.1 g/dL (13.5-17.5); Lymphocytes # (auto) 1.7 10 ^3/uL (0.4-5.4); Lymphocytes % (auto) 20.1 % (10.0-50.0); Mean Corpuscular Hemoglobin 27.9 pg (28.0-32.0); Mean Corpuscular Hgb Conc. 32.5 g/dL (32.0-36.0); Mean Corpuscular Volume 85.7 fL (80.0-100.0); Monocytes % (auto) 11.5 % (0.0-12.0); Neutrophils % (auto) 60.9 % (37.0-80.0); Nucleated Red Blood Cells % 0.1 %; Red Blood Cells 4.34 10^6/uL (4.5-5.90); Red Cell Distribution Width 14.2 % (11.8-14.3); White Blood Cell 8.3 10^3/uL (4.4-10.8)
[2021-06-17 05:02] LABS: BUN/Creatinine Ratio 26.5; Calcium 9.1 mg/dL (8.5-10.1); Potassium 4.6 mmol/L (3.5-5.1)
[2021-06-17] MEDS: FREE WATER GT SCH ×4 (06:13→23:43)
[2021-06-17] MEDS: CLINDAMYCIN 600MG IV 50 ML IV SCH ×3 (06:13→21:25)
[2021-06-17] MEDS: SODIUM CHLOR 0.9% PF (SALINE LOCK) 10ML VIAL/SYR IV SCH ×3 (06:13→21:26)
[2021-06-17] MEDS: ACCU-CHEK COMFORT CURVE STRIP VI SCH ×4 (06:13→17:47)
[2021-06-17] MEDS: fentaNYL Drip 2500mCg/250mlNS 250 ML IV SCH ×2 (06:14→18:20)
[2021-06-17] MEDS: INSULIN LANTUS (GLARGINE) 1 /0.01ml (100units/ml) SC SCH ×2 (06:23→21:29)
[2021-06-17] MEDS: InsuLIN REG 1unit/0.01ml Soln (100units/ml) SC SCH ×4 (06:23→23:42)
[2021-06-17] MEDS: NOREPINEPHRINE 8 MG/250ML KIT 250 ML IV SCH (07:33)
[2021-06-17] MEDS: POTASSIUM EFFERVESENT TAB 25 MEQ GT SCH (09:34)
[2021-06-17] MEDS: METOPROLOL TARTRATE 25 MG TAB PO SCH ×2 (09:35→21:28)
[2021-06-17] MEDS: FAMOTIDINE (10MG/ML) 2ML VL IV SCH (09:35)
[2021-06-17] MEDS: AMIODARONE HCL 200 MG TAB PO SCH ×2 (09:35→21:32)
[2021-06-17] MEDS: levoFLOXacin 250MG 50 ML IV SCH (09:35)
[2021-06-17] MEDS: ENOXAPARIN SOD 40 MG/0.4 ML SYRINGE SC SCH ×2 (09:36→21:31)
[2021-06-17] MEDS: Nepro With Carb Steady 1 Liter Bottle GT SCH (20:30)
[2021-06-18] VITALS (93 sets, daily range): BP systolic 83–199; BP diastolic 39–93
[2021-06-18] MEDS: MIDAZOLAM DRIP 50 mg/50mL 50 ML IV SCH (02:00)
[2021-06-18] MEDS: NOREPINEPHRINE 8 MG/250ML KIT 250 ML IV SCH (02:00)
[2021-06-18] MEDS: PROPOFOL 100 ML IV SCH ×7 (03:45→23:49)
[2021-06-18] MEDS: ACCU-CHEK COMFORT CURVE STRIP VI SCH ×4 (03:53→17:33)
[2021-06-18] MEDS: FREE WATER GT SCH ×3 (05:04→17:32)
[2021-06-18] MEDS: SODIUM CHLOR 0.9% PF (SALINE LOCK) 10ML VIAL/SYR IV SCH ×3 (05:05→22:03)
[2021-06-18] MEDS: InsuLIN REG 1unit/0.01ml Soln (100units/ml) SC SCH ×4 (05:32→23:40)
[2021-06-18] MEDS: CLINDAMYCIN 600MG IV 50 ML IV SCH ×3 (05:37→22:03)
[2021-06-18] MEDS: fentaNYL Drip 2500mCg/250mlNS 250 ML IV SCH ×2 (05:38→19:13)
[2021-06-18] MEDS: INSULIN LANTUS (GLARGINE) 1 /0.01ml (100units/ml) SC SCH ×2 (06:33→22:01)
[2021-06-18] MEDS: FAMOTIDINE (10MG/ML) 2ML VL IV SCH (09:46)
[2021-06-18] MEDS: ENOXAPARIN SOD 40 MG/0.4 ML SYRINGE SC SCH ×2 (09:46→22:03)
[2021-06-18] MEDS: METOPROLOL TARTRATE 25 MG TAB PO SCH (09:46)
[2021-06-18] MEDS: levoFLOXacin 250MG 50 ML IV SCH (09:47)
[2021-06-18] MEDS: AMIODARONE HCL 200 MG TAB PO SCH ×2 (09:47→22:00)
[2021-06-18] MEDS ORDERED: NYSTATIN (MOUTH-THROAT) 500,000 UNITS/5 ML SUSP MT ONE (12:15)
[2021-06-18] MEDS ORDERED: FLUCONAZOLE 200MG/100ML 100 ML IV ONE (12:15)
[2021-06-18] MEDS: NYSTATIN (MOUTH-THROAT) 500,000 UNITS/5 ML SUSP MT SCH ×2 (17:34→22:02)
[2021-06-19] VITALS (98 sets, daily range): BP systolic 15–176; BP diastolic 43–83
[2021-06-19] MEDS: FREE WATER GT SCH ×4 (01:22→17:39)
[2021-06-19] MEDS: ACCU-CHEK COMFORT CURVE STRIP VI SCH ×4 (01:22→17:39)
[2021-06-19] MEDS: NOREPINEPHRINE 8 MG/250ML KIT 250 ML IV SCH (01:24)
[2021-06-19] MEDS: CLINDAMYCIN 600MG IV 50 ML IV SCH ×3 (01:24→21:07)
[2021-06-19] MEDS: MIDAZOLAM DRIP 50 mg/50mL 50 ML IV SCH (01:25)
[2021-06-19] MEDS: PROPOFOL 100 ML IV SCH ×6 (04:03→22:05)
[2021-06-19 04:36] LABS: Basophils # (auto) 0.1 10 ^3/uL (0-0.2); Basophils % (auto) 1.2 % (0.0-2.0); Eosinophils # (auto) 0.4 10 ^3/uL (0-0.8); Eosinophils % (auto) 4.8 % (0.0-7.0); Hematocrit 39.1 % (41.0-53.0); Hemoglobin 12.4 g/dL (13.5-17.5); Lymphocytes # (auto) 1.8 10 ^3/uL (0.4-5.4); Lymphocytes % (auto) 23.4 % (10.0-50.0); Mean Corpuscular Hemoglobin 27.5 pg (28.0-32.0); Mean Corpuscular Hgb Conc. 31.6 g/dL (32.0-36.0); Mean Corpuscular Volume 87.1 fL (80.0-100.0); Monocytes # (auto) 0.7 10 ^3/uL (0-1.3); Monocytes % (auto) 9.1 % (0.0-12.0); Neutrophils # (auto) 4.8 10 ^3/uL (1.6-8.6); Neutrophils % (auto) 61.5 % (37.0-80.0); Nucleated Red Blood Cells % 0.2 %; Red Blood Cells 4.49 10^6/uL (4.5-5.90); Red Cell Distribution Width 14.4 % (11.8-14.3); White Blood Cell 7.8 10^3/uL (4.4-10.8)
[2021-06-19 04:57] LABS: Potassium 5.1 mmol/L (3.5-5.1)
[2021-06-19 05:06] LABS: Albumin 1.7 g/dL (3.4-5.0); BUN/Creatinine Ratio 23.9; Bilirubin, Total 0.3 mg/dL (0.2-1.0); Calcium 8.7 mg/dL (8.5-10.1); Total Protein 6.6 g/dL (6.4-8.2)
[2021-06-19] MEDS: InsuLIN REG 1unit/0.01ml Soln (100units/ml) SC SCH ×3 (05:28→17:40)
[2021-06-19] MEDS: NYSTATIN (MOUTH-THROAT) 500,000 UNITS/5 ML SUSP MT SCH ×4 (05:31→21:07)
[2021-06-19] MEDS: INSULIN LANTUS (GLARGINE) 1 /0.01ml (100units/ml) SC SCH ×2 (06:43→21:13)
[2021-06-19] MEDS: fentaNYL Drip 2500mCg/250mlNS 250 ML IV SCH ×2 (07:07→20:19)
[2021-06-19] MEDS: AMIODARONE HCL 200 MG TAB PO SCH ×2 (09:30→21:00)
[2021-06-19] MEDS: FAMOTIDINE (10MG/ML) 2ML VL IV SCH (09:30)
[2021-06-19] MEDS: levoFLOXacin 250MG 50 ML IV SCH (09:31)
[2021-06-19] MEDS: SODIUM CHLOR 0.9% PF (SALINE LOCK) 10ML VIAL/SYR IV SCH ×2 (09:31→21:07)
[2021-06-19] MEDS: ENOXAPARIN SOD 40 MG/0.4 ML SYRINGE SC SCH ×2 (09:31→21:05)
[2021-06-19] MEDS: FLUCONAZOLE 200MG/100ML 100 ML IV SCH (11:39)
[2021-06-19] MEDS: diphenhdrAMINE HCL 50 MG/1 ML VL IV SCH ×2 (14:32→21:05)
[2021-06-19] MEDS: D5W 5% 1,000 ML IV SCH (15:27)
[2021-06-20] VITALS (103 sets, daily range): BP systolic 88–140; BP diastolic 46–80
[2021-06-20] MEDS: InsuLIN REG 1unit/0.01ml Soln (100units/ml) SC SCH ×5 (00:32→23:44)
[2021-06-20] MEDS: NOREPINEPHRINE 8 MG/250ML KIT 250 ML IV SCH (02:00)
[2021-06-20] MEDS: MIDAZOLAM DRIP 50 mg/50mL 50 ML IV SCH (02:00)
[2021-06-20] MEDS: PROPOFOL 100 ML IV SCH ×6 (02:46→23:31)
[2021-06-20] MEDS: D5W 5% 1,000 ML IV SCH ×3 (04:51→23:31)
[2021-06-20] MEDS: FREE WATER GT SCH ×5 (05:16→23:38)
[2021-06-20] MEDS: ACCU-CHEK COMFORT CURVE STRIP VI SCH ×4 (05:16→17:30)
[2021-06-20] MEDS: CLINDAMYCIN 600MG IV 50 ML IV SCH ×3 (05:26→21:15)
[2021-06-20] MEDS: diphenhdrAMINE HCL 50 MG/1 ML VL IV SCH (05:30)
[2021-06-20] MEDS: NYSTATIN (MOUTH-THROAT) 500,000 UNITS/5 ML SUSP MT SCH ×4 (05:30→21:13)
[2021-06-20] MEDS: fentaNYL Drip 2500mCg/250mlNS 250 ML IV SCH (07:46)
[2021-06-20 07:54] LABS: Glucose 319 mg/dL (74-106)
[2021-06-20 08:38] LABS: Alanine Aminotransferase 127 U/L (16-61); Albumin 1.7 g/dL (3.4-5.0); Alkaline Phosphatase 197 U/L (45-117); Anion Gap 9 (5-15); Aspartate Aminotransferase 96 U/L (15-37); BUN/Creatinine Ratio 20.3; Bilirubin, Total 0.2 mg/dL (0.2-1.0); Calcium 8.6 mg/dL (8.5-10.1); Carbon Dioxide 21 mmol/L (21-32); Chloride 118 mmol/L (98-107); GFR African American 18 mL/min; GFR Non-African American 15 mL/min; Potassium 5.2 mmol/L (3.5-5.1); Sodium 148 mmol/L (136-145); Total Protein 6.6 g/dL (6.4-8.2)
[2021-06-20 08:39] LABS: Blood Urea Nitrogen 89 mg/dL (7-18)
[2021-06-20] MEDS: INSULIN LANTUS (GLARGINE) 1 /0.01ml (100units/ml) SC SCH ×2 (09:50→21:17)
[2021-06-20] MEDS: levoFLOXacin 250MG 50 ML IV SCH (09:55)
[2021-06-20] MEDS: FAMOTIDINE (10MG/ML) 2ML VL IV SCH (09:56)
[2021-06-20] MEDS: ENOXAPARIN SOD 40 MG/0.4 ML SYRINGE SC SCH ×2 (09:56→21:14)
[2021-06-20] MEDS: SODIUM CHLOR 0.9% PF (SALINE LOCK) 10ML VIAL/SYR IV SCH ×2 (09:56→21:15)
[2021-06-20] MEDS: AMIODARONE HCL 200 MG TAB PO SCH ×2 (09:56→21:13)
[2021-06-20] MEDS: FLUCONAZOLE 200MG/100ML 100 ML IV SCH (12:27)
[2021-06-20] MEDS ORDERED: SODIUM ZIRCONIUM CYCL 10 GM PAK PO ONE (21:00)
[2021-06-21] VITALS (102 sets, daily range): BP systolic 92–151; BP diastolic 44–75
[2021-06-21] MEDS: NOREPINEPHRINE 8 MG/250ML KIT 250 ML IV SCH (02:00)
[2021-06-21] MEDS: MIDAZOLAM DRIP 50 mg/50mL 50 ML IV SCH (02:00)
[2021-06-21] MEDS: PROPOFOL 100 ML IV SCH ×6 (02:17→22:13)
[2021-06-21 04:10] LABS: Basophils # (auto) 0.2 10 ^3/uL (0-0.2); Basophils % (auto) 2.2 % (0.0-2.0); Eosinophils # (auto) 0.5 10 ^3/uL (0-0.8); Eosinophils % (auto) 6.7 % (0.0-7.0); Hematocrit 36.9 % (41.0-53.0); Hemoglobin 11.7 g/dL (13.5-17.5); Lymphocytes # (auto) 1.6 10 ^3/uL (0.4-5.4); Lymphocytes % (auto) 20.8 % (10.0-50.0); Mean Corpuscular Hemoglobin 27.9 pg (28.0-32.0); Mean Corpuscular Hgb Conc. 31.6 g/dL (32.0-36.0); Mean Corpuscular Volume 88.3 fL (80.0-100.0); Monocytes # (auto) 0.8 10 ^3/uL (0-1.3); Monocytes % (auto) 10.4 % (0.0-12.0); Neutrophils # (auto) 4.7 10 ^3/uL (1.6-8.6); Neutrophils % (auto) 59.9 % (37.0-80.0); Red Blood Cells 4.18 10^6/uL (4.5-5.90); Red Cell Distribution Width 14.6 % (11.8-14.3); White Blood Cell 7.8 10^3/uL (4.4-10.8)
[2021-06-21 04:38] LABS: Albumin 1.7 g/dL (3.4-5.0); Calcium 8.7 mg/dL (8.5-10.1); Potassium 4.5 mmol/L (3.5-5.1)
[2021-06-21 04:41] LABS: BUN/Creatinine Ratio 21.6
[2021-06-21 04:43] LABS: Bilirubin, Total 0.2 mg/dL (0.2-1.0); Total Protein 6.4 g/dL (6.4-8.2)
[2021-06-21] MEDS: NYSTATIN (MOUTH-THROAT) 500,000 UNITS/5 ML SUSP MT SCH ×4 (05:55→22:00)
[2021-06-21] MEDS: FREE WATER GT SCH ×4 (05:56→23:49)
[2021-06-21] MEDS: CLINDAMYCIN 600MG IV 50 ML IV SCH ×3 (05:56→22:00)
[2021-06-21] MEDS: ACCU-CHEK COMFORT CURVE STRIP VI SCH ×4 (06:00→17:50)
[2021-06-21] MEDS: INSULIN LANTUS (GLARGINE) 1 /0.01ml (100units/ml) SC SCH ×2 (06:26→22:00)
[2021-06-21] MEDS: InsuLIN REG 1unit/0.01ml Soln (100units/ml) SC SCH ×3 (06:26→17:50)
[2021-06-21] MEDS: FAMOTIDINE (10MG/ML) 2ML VL IV SCH (09:43)
[2021-06-21] MEDS: levoFLOXacin 250MG 50 ML IV SCH (09:43)
[2021-06-21] MEDS: ENOXAPARIN SOD 40 MG/0.4 ML SYRINGE SC SCH ×2 (09:44→22:00)
[2021-06-21] MEDS: SODIUM CHLOR 0.9% PF (SALINE LOCK) 10ML VIAL/SYR IV SCH ×2 (09:50→22:00)
[2021-06-21] MEDS: AMIODARONE HCL 200 MG TAB PO SCH ×2 (09:50→22:00)
[2021-06-21] MEDS: FLUCONAZOLE 200MG/100ML 100 ML IV SCH (12:10)
[2021-06-21] MEDS: SODIUM BICARBONATE 50ML VIAL 50 ML in D5W 5% 1,000 ML IV SCH ×2 (12:35→20:45)
[2021-06-21] MEDS: fentaNYL Drip 2500mCg/250mlNS 250 ML IV SCH (19:30)
[2021-06-22] VITALS (102 sets, daily range): BP systolic 87–144; BP diastolic 43–75
[2021-06-22] MEDS: ACCU-CHEK COMFORT CURVE STRIP VI SCH ×5 (00:14→23:33)
[2021-06-22] MEDS: PROPOFOL 100 ML IV SCH ×8 (01:52→20:30)
[2021-06-22] MEDS: Nepro With Carb Steady 1 Liter Bottle GT SCH (01:53)
[2021-06-22] MEDS: MIDAZOLAM DRIP 50 mg/50mL 50 ML IV SCH (02:00)
[2021-06-22] MEDS: NOREPINEPHRINE 8 MG/250ML KIT 250 ML IV SCH (02:00)
[2021-06-22 05:00] LABS: Albumin 1.6 g/dL (3.4-5.0); BUN/Creatinine Ratio 21.8; Calcium 8.9 mg/dL (8.5-10.1); Potassium 4.2 mmol/L (3.5-5.1)
[2021-06-22 05:11] LABS: Bilirubin, Total 0.2 mg/dL (0.2-1.0); Total Protein 6.1 g/dL (6.4-8.2)
[2021-06-22] MEDS: InsuLIN REG 1unit/0.01ml Soln (100units/ml) SC SCH ×5 (06:00→23:32)
[2021-06-22] MEDS: CLINDAMYCIN 600MG IV 50 ML IV SCH ×3 (06:00→22:00)
[2021-06-22] MEDS: NYSTATIN (MOUTH-THROAT) 500,000 UNITS/5 ML SUSP MT SCH ×4 (06:00→22:00)
[2021-06-22] MEDS: FREE WATER GT SCH ×4 (06:00→23:35)
[2021-06-22] MEDS: INSULIN LANTUS (GLARGINE) 1 /0.01ml (100units/ml) SC SCH ×2 (07:05→22:00)
[2021-06-22] MEDS: SODIUM BICARBONATE 50ML VIAL 50 ML in D5W 5% 1,000 ML IV SCH ×2 (07:15→14:27)
[2021-06-22] MEDS: FAMOTIDINE (10MG/ML) 2ML VL IV SCH (09:34)
[2021-06-22] MEDS: ENOXAPARIN SOD 40 MG/0.4 ML SYRINGE SC SCH ×2 (09:34→22:00)
[2021-06-22] MEDS: AMIODARONE HCL 200 MG TAB PO SCH ×3 (09:34→22:00)
[2021-06-22] MEDS: levoFLOXacin 250MG 50 ML IV SCH (09:34)
[2021-06-22] MEDS: SODIUM CHLOR 0.9% PF (SALINE LOCK) 10ML VIAL/SYR IV SCH ×2 (09:34→22:00)
[2021-06-22] MEDS ORDERED: ALBUMIN 25% 100 ML IV ONE (09:45)
[2021-06-22] MEDS: FLUCONAZOLE 200MG/100ML 100 ML IV SCH (11:53)
[2021-06-22] MEDS: diphenhdrAMINE HCL 50 MG/1 ML VL IV PRN (13:15)
[2021-06-22] MEDS: fentaNYL Drip 2500mCg/250mlNS 250 ML IV SCH (18:47)
[2021-06-23] VITALS (100 sets, daily range): BP systolic 94–143; BP diastolic 50–80
[2021-06-23] MEDS: PROPOFOL 100 ML IV SCH ×5 (01:10→23:00)
[2021-06-23] MEDS: SODIUM BICARBONATE 50ML VIAL 50 ML in D5W 5% 1,000 ML IV SCH ×2 (01:22→13:32)
[2021-06-23] MEDS: MIDAZOLAM DRIP 50 mg/50mL 50 ML IV SCH (02:00)
[2021-06-23] MEDS: NOREPINEPHRINE 8 MG/250ML KIT 250 ML IV SCH (02:00)
[2021-06-23 04:23] LABS: Basophils # (auto) 0.2 10 ^3/uL (0-0.2); Basophils % (auto) 2.8 % (0.0-2.0); Eosinophils # (auto) 0.4 10 ^3/uL (0-0.8); Eosinophils % (auto) 5.2 % (0.0-7.0); Hematocrit 32.9 % (41.0-53.0); Hemoglobin 10.8 g/dL (13.5-17.5); Lymphocytes # (auto) 1.5 10 ^3/uL (0.4-5.4); Lymphocytes % (auto) 22.6 % (10.0-50.0); Mean Corpuscular Hgb Conc. 32.8 g/dL (32.0-36.0); Mean Corpuscular Volume 85.2 fL (80.0-100.0); Monocytes # (auto) 0.7 10 ^3/uL (0-1.3); Monocytes % (auto) 10.7 % (0.0-12.0); Neutrophils % (auto) 58.7 % (37.0-80.0); Nucleated Red Blood Cells % 0.1 %; Red Blood Cells 3.86 10^6/uL (4.5-5.90); Red Cell Distribution Width 14.2 % (11.8-14.3); White Blood Cell 6.8 10^3/uL (4.4-10.8)
[2021-06-23 04:42] LABS: Potassium 4.5 mmol/L (3.5-5.1)
[2021-06-23 04:47] LABS: Albumin 1.8 g/dL (3.4-5.0); BUN/Creatinine Ratio 20.6; Calcium 8.6 mg/dL (8.5-10.1)
[2021-06-23 05:05] LABS: Bilirubin, Total 0.2 mg/dL (0.2-1.0); Total Protein 6.1 g/dL (6.4-8.2)
[2021-06-23] MEDS: InsuLIN REG 1unit/0.01ml Soln (100units/ml) SC SCH ×4 (06:00→23:49)
[2021-06-23] MEDS: CLINDAMYCIN 600MG IV 50 ML IV SCH ×2 (06:00→13:32)
[2021-06-23] MEDS: FREE WATER GT SCH ×4 (06:00→23:48)
[2021-06-23] MEDS: NYSTATIN (MOUTH-THROAT) 500,000 UNITS/5 ML SUSP MT SCH ×4 (06:00→22:00)
[2021-06-23] MEDS: ACCU-CHEK COMFORT CURVE STRIP VI SCH ×3 (06:21→18:12)
[2021-06-23] MEDS: diphenhdrAMINE HCL 50 MG/1 ML VL IV PRN (06:21)
[2021-06-23] MEDS: INSULIN LANTUS (GLARGINE) 1 /0.01ml (100units/ml) SC SCH ×2 (06:53→22:00)
[2021-06-23] MEDS: SODIUM CHLOR 0.9% PF (SALINE LOCK) 10ML VIAL/SYR IV SCH ×2 (10:00→22:00)
[2021-06-23] MEDS: AMIODARONE HCL 200 MG TAB PO SCH (10:00)
[2021-06-23] MEDS: FAMOTIDINE (10MG/ML) 2ML VL IV SCH (10:00)
[2021-06-23] MEDS: ENOXAPARIN SOD 40 MG/0.4 ML SYRINGE SC SCH ×2 (10:00→22:00)
[2021-06-23] MEDS: levoFLOXacin 250MG 50 ML IV SCH (10:00)
[2021-06-23] MEDS: FLUCONAZOLE 200MG/100ML 100 ML IV SCH (11:52)
[2021-06-23] MEDS ORDERED: DexAMETHasone SOD PHOS 4 MG/1ML SDV INJ IV ONE (14:15)
[2021-06-23] MEDS: DOXYCYCLINE 100MG/250ML 250 ML IV SCH (15:11)
[2021-06-23] MEDS: fentaNYL Drip 2500mCg/250mlNS 250 ML IV SCH (19:53)
[2021-06-24] VITALS (95 sets, daily range): BP systolic 97–145; BP diastolic 47–78
[2021-06-24] MEDS: SODIUM BICARBONATE 50ML VIAL 50 ML in D5W 5% 1,000 ML IV SCH ×2 (01:15→12:45)
[2021-06-24] MEDS: DOXYCYCLINE 100MG/250ML 250 ML IV SCH ×2 (01:54→13:59)
[2021-06-24] MEDS: PROPOFOL 100 ML IV SCH ×7 (01:57→22:07)
[2021-06-24] MEDS: MIDAZOLAM DRIP 50 mg/50mL 50 ML IV SCH (02:00)
[2021-06-24] MEDS: NOREPINEPHRINE 8 MG/250ML KIT 250 ML IV SCH (02:00)
[2021-06-24 04:09] LABS: Basophils # (auto) 0 10 ^3/uL (0-0.2); Basophils % (auto) 0.6 % (0.0-2.0); Eosinophils # (auto) 0.2 10 ^3/uL (0-0.8); Eosinophils % (auto) 2.2 % (0.0-7.0); Hemoglobin 11.5 g/dL (13.5-17.5); Lymphocytes # (auto) 1.2 10 ^3/uL (0.4-5.4); Lymphocytes % (auto) 16.4 % (10.0-50.0); Mean Corpuscular Hemoglobin 28.1 pg (28.0-32.0); Mean Corpuscular Volume 85.1 fL (80.0-100.0); Monocytes # (auto) 0.6 10 ^3/uL (0-1.3); Neutrophils # (auto) 5.5 10 ^3/uL (1.6-8.6); Neutrophils % (auto) 72.8 % (37.0-80.0); Nucleated Red Blood Cells % 0.1 %; Red Blood Cells 4.11 10^6/uL (4.5-5.90); Red Cell Distribution Width 14.1 % (11.8-14.3); White Blood Cell 7.6 10^3/uL (4.4-10.8)
[2021-06-24 04:23] LABS: Calcium 8.9 mg/dL (8.5-10.1); Potassium 4.5 mmol/L (3.5-5.1)
[2021-06-24 04:26] LABS: BUN/Creatinine Ratio 22.4; Bilirubin, Total 0.3 mg/dL (0.2-1.0); Total Protein 6.6 g/dL (6.4-8.2)
[2021-06-24] MEDS: ACCU-CHEK COMFORT CURVE STRIP VI SCH ×5 (06:00→23:30)
[2021-06-24] MEDS: FREE WATER GT SCH ×3 (06:26→17:46)
[2021-06-24] MEDS: NYSTATIN (MOUTH-THROAT) 500,000 UNITS/5 ML SUSP MT SCH ×4 (06:27→22:06)
[2021-06-24] MEDS: InsuLIN REG 1unit/0.01ml Soln (100units/ml) SC SCH ×4 (06:29→23:31)
[2021-06-24] MEDS: INSULIN LANTUS (GLARGINE) 1 /0.01ml (100units/ml) SC SCH ×2 (06:31→20:55)
[2021-06-24] MEDS: fentaNYL Drip 2500mCg/250mlNS 250 ML IV SCH ×2 (07:35→20:54)
[2021-06-24] MEDS: FAMOTIDINE (10MG/ML) 2ML VL IV SCH (09:18)
[2021-06-24] MEDS: ENOXAPARIN SOD 40 MG/0.4 ML SYRINGE SC SCH ×2 (09:18→22:06)
[2021-06-24] MEDS: SODIUM CHLOR 0.9% PF (SALINE LOCK) 10ML VIAL/SYR IV SCH ×2 (09:18→22:06)
[2021-06-24] MEDS: FLUCONAZOLE 200MG/100ML 100 ML IV SCH (12:19)
[2021-06-24] MEDS ORDERED: LACTULOSE 20Gm/30ML SOLN PO ONE (15:30)
[2021-06-24] MEDS ORDERED: DexAMETHasone SOD PHOS 4 MG/1ML SDV INJ IV ONE (15:30)
[2021-06-24] MEDS: LACTULOSE 20Gm/30ML SOLN PO SCH (17:45)
[2021-06-25] VITALS (103 sets, daily range): BP systolic 90–124; BP diastolic 51–71
[2021-06-25] MEDS: SODIUM BICARBONATE 50ML VIAL 50 ML in D5W 5% 1,000 ML IV SCH ×3 (00:03→13:57)
[2021-06-25] MEDS: DOXYCYCLINE 100MG/250ML 250 ML IV SCH ×2 (01:29→13:57)
[2021-06-25] MEDS: PROPOFOL 100 ML IV SCH ×9 (01:31→22:59)
[2021-06-25] MEDS: MIDAZOLAM DRIP 50 mg/50mL 50 ML IV SCH (02:00)
[2021-06-25] MEDS: NOREPINEPHRINE 8 MG/250ML KIT 250 ML IV SCH (02:00)
[2021-06-25 05:36] LABS: Basophils # (auto) 0.1 10 ^3/uL (0-0.2); Basophils % (auto) 1.9 % (0.0-2.0); Eosinophils # (auto) 0 10 ^3/uL (0-0.8); Eosinophils % (auto) 0.1 % (0.0-7.0); Lymphocytes # (auto) 0.8 10 ^3/uL (0.4-5.4); Lymphocytes % (auto) 11.4 % (10.0-50.0); Mean Corpuscular Hgb Conc. 32.5 g/dL (32.0-36.0); Mean Corpuscular Volume 86.2 fL (80.0-100.0); Monocytes # (auto) 0.4 10 ^3/uL (0-1.3); Monocytes % (auto) 5.1 % (0.0-12.0); Neutrophils # (auto) 5.9 10 ^3/uL (1.6-8.6); Neutrophils % (auto) 81.5 % (37.0-80.0); Nucleated Red Blood Cells % 0.1 %; Red Blood Cells 3.95 10^6/uL (4.5-5.90); Red Cell Distribution Width 13.9 % (11.8-14.3); White Blood Cell 7.3 10^3/uL (4.4-10.8)
[2021-06-25 05:46] LABS: Albumin 1.9 g/dL (3.4-5.0); BUN/Creatinine Ratio 22.7; Bilirubin, Total 0.3 mg/dL (0.2-1.0); Calcium 8.6 mg/dL (8.5-10.1); Total Protein 6.2 g/dL (6.4-8.2)
[2021-06-25] MEDS: FREE WATER GT SCH ×4 (06:05→17:33)
[2021-06-25] MEDS: NYSTATIN (MOUTH-THROAT) 500,000 UNITS/5 ML SUSP MT SCH ×4 (06:05→22:08)
[2021-06-25] MEDS: INSULIN LANTUS (GLARGINE) 1 /0.01ml (100units/ml) SC SCH ×2 (06:07→22:09)
[2021-06-25] MEDS: InsuLIN REG 1unit/0.01ml Soln (100units/ml) SC SCH ×3 (06:07→17:34)
[2021-06-25] MEDS: LACTULOSE 20Gm/30ML SOLN PO SCH ×4 (06:13→17:32)
[2021-06-25] MEDS: ACCU-CHEK COMFORT CURVE STRIP VI SCH ×3 (06:13→17:33)
[2021-06-25] MEDS: fentaNYL Drip 2500mCg/250mlNS 250 ML IV SCH ×2 (08:43→21:46)
[2021-06-25] MEDS: FAMOTIDINE (10MG/ML) 2ML VL IV SCH (09:13)
[2021-06-25] MEDS: ENOXAPARIN SOD 40 MG/0.4 ML SYRINGE SC SCH ×2 (09:13→22:08)
[2021-06-25] MEDS: SODIUM CHLOR 0.9% PF (SALINE LOCK) 10ML VIAL/SYR IV SCH ×2 (09:13→22:08)
[2021-06-25] MEDS: FLUCONAZOLE 200MG/100ML 100 ML IV SCH (11:52)
[2021-06-26] VITALS (93 sets, daily range): BP systolic 84–143; BP diastolic 46–77
[2021-06-26] MEDS: ACCU-CHEK COMFORT CURVE STRIP VI SCH ×4 (00:53→17:55)
[2021-06-26] MEDS: InsuLIN REG 1unit/0.01ml Soln (100units/ml) SC SCH ×4 (00:54→17:58)
[2021-06-26] MEDS: FREE WATER GT SCH ×5 (01:01→17:54)
[2021-06-26] MEDS: LACTULOSE 20Gm/30ML SOLN PO SCH ×4 (01:01→17:55)
[2021-06-26] MEDS: DOXYCYCLINE 100MG/250ML 250 ML IV SCH ×2 (01:03→14:39)
[2021-06-26] MEDS: PROPOFOL 100 ML IV SCH ×8 (01:49→23:46)
[2021-06-26] MEDS: MIDAZOLAM DRIP 50 mg/50mL 50 ML IV SCH (02:00)
[2021-06-26 04:31] LABS: Basophils # (auto) 0 10 ^3/uL (0-0.2); Basophils % (auto) 0.2 % (0.0-2.0); Eosinophils # (auto) 0.2 10 ^3/uL (0-0.8); Eosinophils % (auto) 3.8 % (0.0-7.0); Hematocrit 29.3 % (41.0-53.0); Hemoglobin 10.2 g/dL (13.5-17.5); Lymphocytes # (auto) 1.2 10 ^3/uL (0.4-5.4); Lymphocytes % (auto) 18.9 % (10.0-50.0); Mean Corpuscular Hemoglobin 30.3 pg (28.0-32.0); Mean Corpuscular Hgb Conc. 34.9 g/dL (32.0-36.0); Mean Corpuscular Volume 86.9 fL (80.0-100.0); Monocytes # (auto) 0.5 10 ^3/uL (0-1.3); Monocytes % (auto) 8.6 % (0.0-12.0); Neutrophils # (auto) 4.4 10 ^3/uL (1.6-8.6); Neutrophils % (auto) 68.5 % (37.0-80.0); Nucleated Red Blood Cells % 0.3 %; Red Blood Cells 3.38 10^6/uL (4.5-5.90); Red Cell Distribution Width 14.3 % (11.8-14.3); White Blood Cell 6.4 10^3/uL (4.4-10.8)
[2021-06-26 04:50] LABS: INR 1.02 (0.9-1.15)
[2021-06-26 04:53] LABS: Potassium 3.5 mmol/L (3.5-5.1)
[2021-06-26 04:59] LABS: Calcium 6.4 mg/dL (8.5-10.1)
[2021-06-26] MEDS: NYSTATIN (MOUTH-THROAT) 500,000 UNITS/5 ML SUSP MT SCH ×4 (05:51→22:04)
[2021-06-26] MEDS: INSULIN LANTUS (GLARGINE) 1 /0.01ml (100units/ml) SC SCH ×2 (06:00→22:21)
[2021-06-26] MEDS: SODIUM BICARBONATE 50ML VIAL 50 ML in D5W 5% 1,000 ML IV SCH ×2 (06:01→15:54)
[2021-06-26] MEDS: NOREPINEPHRINE 8 MG/250ML KIT 250 ML IV SCH (09:25)
[2021-06-26] MEDS: FAMOTIDINE (10MG/ML) 2ML VL IV SCH (09:27)
[2021-06-26] MEDS: ENOXAPARIN SOD 40 MG/0.4 ML SYRINGE SC SCH ×3 (09:27→22:04)
[2021-06-26] MEDS: SODIUM CHLOR 0.9% PF (SALINE LOCK) 10ML VIAL/SYR IV SCH ×2 (09:28→21:38)
[2021-06-26 10:50] LABS: BUN/Creatinine Ratio 25.4; Calcium 8.5 mg/dL (8.5-10.1); Potassium 4.2 mmol/L (3.5-5.1)
[2021-06-26] MEDS: FLUCONAZOLE 200MG/100ML 100 ML IV SCH (11:38)
[2021-06-26] MEDS ORDERED: PROPOFOL 10 MG/ML 20 ML IV ONE (12:21)
[2021-06-26] MEDS ORDERED: HYDROmorphone HCL 2 MG/ML VL ONE ×2 (12:21→14:00)
[2021-06-26] MEDS ORDERED: SODIUM CHLORIDE LOCK 10 ML ONE (12:21)
[2021-06-26] MEDS ORDERED: fentaNYL CITRATE 5 ML ONE (12:21)
[2021-06-26] MEDS ORDERED: ROCURONIUM 10MG/ML 10ML VIAL IV ONE (12:21)
[2021-06-26] MEDS ORDERED: MIDAZOLAM HCL 2MG/2ML 2ml VIAL (1mg/ml) ONE ×2 (12:21→14:00)
[2021-06-26] MEDS ORDERED: FUROSEMIDE 20 MG/2 ML VIAL ONE (13:14)
[2021-06-26] MEDS: fentaNYL Drip 2500mCg/250mlNS 250 ML IV SCH (16:37)
[2021-06-26] MEDS ORDERED: LIDOCAINE 1% (LOCAL ANESTH.) PF 5ml SDV ONE (19:55)
[2021-06-27] VITALS (104 sets, daily range): BP systolic 103–141; BP diastolic 56–78
[2021-06-27] MEDS: FREE WATER GT SCH ×5 (00:12→22:26)
[2021-06-27] MEDS: LACTULOSE 20Gm/30ML SOLN PO SCH ×4 (00:12→17:42)
[2021-06-27] MEDS: ACCU-CHEK COMFORT CURVE STRIP VI SCH ×5 (00:13→22:25)
[2021-06-27] MEDS: InsuLIN REG 1unit/0.01ml Soln (100units/ml) SC SCH ×5 (00:20→22:25)
[2021-06-27] MEDS: MIDAZOLAM DRIP 50 mg/50mL 50 ML IV SCH (02:00)
[2021-06-27] MEDS: PROPOFOL 100 ML IV SCH ×9 (02:23→22:40)
[2021-06-27] MEDS: DOXYCYCLINE 100MG/250ML 250 ML IV SCH ×2 (02:23→14:17)
[2021-06-27] MEDS: fentaNYL Drip 2500mCg/250mlNS 250 ML IV SCH ×2 (04:06→14:19)
[2021-06-27 04:41] LABS: Basophils # (auto) 0.1 10 ^3/uL (0-0.2); Basophils % (auto) 1.3 % (0.0-2.0); Eosinophils # (auto) 0.1 10 ^3/uL (0-0.8); Hematocrit 28.9 % (41.0-53.0); Hemoglobin 9.4 g/dL (13.5-17.5); Lymphocytes # (auto) 0.9 10 ^3/uL (0.4-5.4); Lymphocytes % (auto) 11.2 % (10.0-50.0); Mean Corpuscular Hemoglobin 27.8 pg (28.0-32.0); Mean Corpuscular Hgb Conc. 32.5 g/dL (32.0-36.0); Mean Corpuscular Volume 85.4 fL (80.0-100.0); Monocytes # (auto) 0.6 10 ^3/uL (0-1.3); Monocytes % (auto) 7.2 % (0.0-12.0); Neutrophils # (auto) 6.7 10 ^3/uL (1.6-8.6); Neutrophils % (auto) 79.3 % (37.0-80.0); Nucleated Red Blood Cells % 0.1 %; Red Blood Cells 3.38 10^6/uL (4.5-5.90); Red Cell Distribution Width 13.9 % (11.8-14.3); White Blood Cell 8.5 10^3/uL (4.4-10.8)
[2021-06-27 05:05] LABS: Potassium 5.3 mmol/L (3.5-5.1)
[2021-06-27 05:13] LABS: Albumin 1.8 g/dL (3.4-5.0); BUN/Creatinine Ratio 24.5; Calcium 8.7 mg/dL (8.5-10.1)
[2021-06-27 05:15] LABS: Bilirubin, Total 0.4 mg/dL (0.2-1.0); Total Protein 6.4 g/dL (6.4-8.2)
[2021-06-27] MEDS: NYSTATIN (MOUTH-THROAT) 500,000 UNITS/5 ML SUSP MT SCH ×4 (06:20→22:24)
[2021-06-27] MEDS: NOREPINEPHRINE 8 MG/250ML KIT 250 ML IV SCH (06:37)
[2021-06-27] MEDS: INSULIN LANTUS (GLARGINE) 1 /0.01ml (100units/ml) SC SCH ×2 (06:38→22:25)
[2021-06-27] MEDS: SODIUM BICARBONATE 50ML VIAL 50 ML in D5W 5% 1,000 ML IV SCH (08:45)
[2021-06-27] MEDS: ENOXAPARIN SOD 40 MG/0.4 ML SYRINGE SC SCH ×2 (09:30→22:24)
[2021-06-27] MEDS: FAMOTIDINE (10MG/ML) 2ML VL IV SCH (09:30)
[2021-06-27] MEDS: SODIUM CHLOR 0.9% PF (SALINE LOCK) 10ML VIAL/SYR IV SCH ×2 (09:30→22:23)
[2021-06-27] MEDS: FLUCONAZOLE 200MG/100ML 100 ML IV SCH (12:17)
[2021-06-27] MEDS ORDERED: FUROSEMIDE 20 MG/2 ML VIAL IV ONE (14:45)
[2021-06-28] VITALS (101 sets, daily range): BP systolic 95–189; BP diastolic 57–101
[2021-06-28] MEDS: PROPOFOL 100 ML IV SCH ×7 (01:10→21:24)
[2021-06-28] MEDS: MIDAZOLAM DRIP 50 mg/50mL 50 ML IV SCH (02:00)
[2021-06-28] MEDS: NOREPINEPHRINE 8 MG/250ML KIT 250 ML IV SCH (02:00)
[2021-06-28] MEDS: DOXYCYCLINE 100MG/250ML 250 ML IV SCH ×2 (02:30→15:59)
[2021-06-28] MEDS: fentaNYL Drip 2500mCg/250mlNS 250 ML IV SCH ×2 (02:30→12:30)
[2021-06-28] MEDS: hydrALAZINE HCL 20 MG/ML VL IV PRN (04:01)
[2021-06-28 05:15] LABS: Potassium 5.2 mmol/L (3.5-5.1)
[2021-06-28 05:20] LABS: BUN/Creatinine Ratio 28.5; Calcium 9.6 mg/dL (8.5-10.1)
[2021-06-28] MEDS: ACCU-CHEK COMFORT CURVE STRIP VI SCH ×3 (05:25→17:49)
[2021-06-28] MEDS: FREE WATER GT SCH ×3 (05:42→17:49)
[2021-06-28] MEDS: InsuLIN REG 1unit/0.01ml Soln (100units/ml) SC SCH ×3 (05:42→17:49)
[2021-06-28] MEDS: NYSTATIN (MOUTH-THROAT) 500,000 UNITS/5 ML SUSP MT SCH ×4 (05:42→22:18)
[2021-06-28] MEDS: INSULIN LANTUS (GLARGINE) 1 /0.01ml (100units/ml) SC SCH ×2 (05:42→22:30)
[2021-06-28] MEDS: LACTULOSE 20Gm/30ML SOLN PO SCH ×4 (05:42→17:52)
[2021-06-28] MEDS: MORPHINE SULFATE INJECTION 2 MG/ML SYRG IV PRN (06:00)
[2021-06-28] MEDS: FAMOTIDINE (10MG/ML) 2ML VL IV SCH (10:11)
[2021-06-28] MEDS: ENOXAPARIN SOD 40 MG/0.4 ML SYRINGE SC SCH ×2 (10:13→22:18)
[2021-06-28] MEDS: SODIUM CHLOR 0.9% PF (SALINE LOCK) 10ML VIAL/SYR IV SCH ×2 (10:14→22:18)
[2021-06-28] MEDS: Nepro With Carb Steady 1 Liter Bottle GT SCH (10:30)
[2021-06-28] MEDS: FLUCONAZOLE 200MG/100ML 100 ML IV SCH (11:54)
[2021-06-28] MEDS ORDERED: FUROSEMIDE 20 MG/2 ML VIAL IV ONE (14:45)
[2021-06-29] VITALS (76 sets, daily range): BP systolic 85–159; BP diastolic 53–85
[2021-06-29] MEDS: InsuLIN REG 1unit/0.01ml Soln (100units/ml) SC SCH ×5 (00:10→23:49)
[2021-06-29] MEDS: FREE WATER GT SCH ×4 (00:12→17:33)
[2021-06-29] MEDS: ACCU-CHEK COMFORT CURVE STRIP VI SCH ×4 (00:12→17:44)
[2021-06-29] MEDS: PROPOFOL 100 ML IV SCH ×7 (00:38→21:21)
[2021-06-29] MEDS: MIDAZOLAM DRIP 50 mg/50mL 50 ML IV SCH (02:00)
[2021-06-29] MEDS: NOREPINEPHRINE 8 MG/250ML KIT 250 ML IV SCH (02:00)
[2021-06-29] MEDS: NYSTATIN (MOUTH-THROAT) 500,000 UNITS/5 ML SUSP MT SCH ×4 (05:38→22:12)
[2021-06-29] MEDS: LACTULOSE 20Gm/30ML SOLN PO SCH ×4 (05:39→17:33)
[2021-06-29] MEDS: INSULIN LANTUS (GLARGINE) 1 /0.01ml (100units/ml) SC SCH ×2 (05:43→22:14)
[2021-06-29 08:23] LABS: Albumin 1.8 g/dL (3.4-5.0); Calcium 9.2 mg/dL (8.5-10.1); Potassium 4.6 mmol/L (3.5-5.1)
[2021-06-29 08:26] LABS: BUN/Creatinine Ratio 26.7; Bilirubin, Total 0.5 mg/dL (0.2-1.0); Total Protein 5.9 g/dL (6.4-8.2)
[2021-06-29 09:34] LABS: Basophils # (auto) 0.1 10 ^3/uL (0-0.2); Basophils % (auto) 1.4 % (0.0-2.0); Eosinophils # (auto) 0.3 10 ^3/uL (0-0.8); Eosinophils % (auto) 5.1 % (0.0-7.0); Hematocrit 35.1 % (41.0-53.0); Hemoglobin 11.2 g/dL (13.5-17.5); Lymphocytes # (auto) 1.2 10 ^3/uL (0.4-5.4); Lymphocytes % (auto) 19.1 % (10.0-50.0); Mean Corpuscular Hemoglobin 27.3 pg (28.0-32.0); Mean Corpuscular Hgb Conc. 31.9 g/dL (32.0-36.0); Mean Corpuscular Volume 85.4 fL (80.0-100.0); Monocytes # (auto) 0.8 10 ^3/uL (0-1.3); Monocytes % (auto) 13.6 % (0.0-12.0); Neutrophils # (auto) 3.7 10 ^3/uL (1.6-8.6); Neutrophils % (auto) 60.8 % (37.0-80.0); Nucleated Red Blood Cells % 0.1 %; Red Blood Cells 4.11 10^6/uL (4.5-5.90); Red Cell Distribution Width 14.4 % (11.8-14.3); White Blood Cell 6.2 10^3/uL (4.4-10.8)
[2021-06-29] MEDS: ENOXAPARIN SOD 40 MG/0.4 ML SYRINGE SC SCH ×2 (10:30→22:13)
[2021-06-29] MEDS: SODIUM CHLOR 0.9% PF (SALINE LOCK) 10ML VIAL/SYR IV SCH ×2 (10:30→22:12)
[2021-06-29] MEDS: FAMOTIDINE (10MG/ML) 2ML VL IV SCH (10:30)
[2021-06-29] MEDS: fentaNYL Drip 2500mCg/250mlNS 250 ML IV SCH ×2 (10:39→22:43)
[2021-06-29] MEDS: FLUCONAZOLE 200MG/100ML 100 ML IV SCH (12:16)
[2021-06-29] MEDS: DOXYCYCLINE 100MG/250ML 250 ML IV SCH ×2 (14:00→14:06)
[2021-06-30] VITALS (72 sets, daily range): BP systolic 81–172; BP diastolic 47–89
[2021-06-30] MEDS: FREE WATER GT SCH ×2 (00:34→06:10)
[2021-06-30] MEDS: ACCU-CHEK COMFORT CURVE STRIP VI SCH ×5 (00:34→23:21)
[2021-06-30] MEDS: PROPOFOL 100 ML IV SCH ×5 (01:34→16:55)
[2021-06-30] MEDS: MIDAZOLAM DRIP 50 mg/50mL 50 ML IV SCH (02:00)
[2021-06-30] MEDS: NOREPINEPHRINE 8 MG/250ML KIT 250 ML IV SCH (02:00)
[2021-06-30] MEDS: DOXYCYCLINE 100MG/250ML 250 ML IV SCH ×2 (02:30→15:52)
[2021-06-30 04:40] LABS: Basophils # (auto) 0.1 10 ^3/uL (0-0.2); Basophils % (auto) 2.2 % (0.0-2.0); Eosinophils # (auto) 0.4 10 ^3/uL (0-0.8); Eosinophils % (auto) 6.6 % (0.0-7.0); Hematocrit 33.7 % (41.0-53.0); Hemoglobin 11.1 g/dL (13.5-17.5); Lymphocytes # (auto) 1.3 10 ^3/uL (0.4-5.4); Lymphocytes % (auto) 24.9 % (10.0-50.0); Mean Corpuscular Hemoglobin 28.1 pg (28.0-32.0); Mean Corpuscular Hgb Conc. 32.8 g/dL (32.0-36.0); Mean Corpuscular Volume 85.7 fL (80.0-100.0); Monocytes # (auto) 0.7 10 ^3/uL (0-1.3); Monocytes % (auto) 12.4 % (0.0-12.0); Neutrophils # (auto) 2.9 10 ^3/uL (1.6-8.6); Neutrophils % (auto) 53.9 % (37.0-80.0); Nucleated Red Blood Cells % 0.1 %; Red Blood Cells 3.94 10^6/uL (4.5-5.90); Red Cell Distribution Width 14.4 % (11.8-14.3); White Blood Cell 5.4 10^3/uL (4.4-10.8)
[2021-06-30 05:00] LABS: Chloride 109 mmol/L (98-107); Potassium 4.2 mmol/L (3.5-5.1); Sodium 136 mmol/L (136-145)
[2021-06-30 05:01] LABS: INR 1.03 (0.9-1.15); Partial Thromboplastin Time 27.4 sec (23.6-33.0)
[2021-06-30 05:12] LABS: Alanine Aminotransferase 407 U/L (16-61); Albumin 1.7 g/dL (3.4-5.0); Alkaline Phosphatase 312 U/L (45-117); Anion Gap 9 (5-15); Aspartate Aminotransferase 245 U/L (15-37); Bilirubin, Total 0.3 mg/dL (0.2-1.0); Blood Urea Nitrogen 67 mg/dL (7-18); Carbon Dioxide 18 mmol/L (21-32); GFR African American 36 mL/min; GFR Non-African American 30 mL/min; Glucose 230 mg/dL (74-106); Magnesium 2.7 mg/dL (1.6-2.6); Phosphorus 5.5 mg/dL (2.5-4.90); Total Protein 6.2 g/dL (6.4-8.2)
[2021-06-30] MEDS: NYSTATIN (MOUTH-THROAT) 500,000 UNITS/5 ML SUSP MT SCH ×4 (06:10→22:00)
[2021-06-30] MEDS: LACTULOSE 20Gm/30ML SOLN PO SCH ×4 (06:11→17:54)
[2021-06-30] MEDS: InsuLIN REG 1unit/0.01ml Soln (100units/ml) SC SCH ×4 (06:12→23:43)
[2021-06-30] MEDS: INSULIN LANTUS (GLARGINE) 1 /0.01ml (100units/ml) SC SCH ×2 (06:21→23:10)
[2021-06-30] MEDS: FAMOTIDINE (10MG/ML) 2ML VL IV SCH (10:56)
[2021-06-30] MEDS: ENOXAPARIN SOD 40 MG/0.4 ML SYRINGE SC SCH ×2 (10:57→23:11)
[2021-06-30] MEDS: SODIUM CHLOR 0.9% PF (SALINE LOCK) 10ML VIAL/SYR IV SCH ×2 (10:58→22:00)
[2021-06-30] MEDS: fentaNYL Drip 2500mCg/250mlNS 250 ML IV SCH ×2 (11:33→23:44)
[2021-06-30] MEDS: FLUCONAZOLE 200MG/100ML 100 ML IV SCH (12:52)
[2021-06-30] MEDS ORDERED: FUROSEMIDE 20 MG/2 ML VIAL IV ONE (15:15)
[2021-07-01] VITALS (104 sets, daily range): BP systolic 93–176; BP diastolic 51–90
[2021-07-01] MEDS: DOXYCYCLINE 100MG/250ML 250 ML IV SCH ×2 (02:58→14:28)
[2021-07-01] MEDS: NYSTATIN (MOUTH-THROAT) 500,000 UNITS/5 ML SUSP MT SCH ×4 (05:58→21:44)
[2021-07-01] MEDS: PROPOFOL 100 ML IV SCH ×6 (05:58→22:25)
[2021-07-01] MEDS: LACTULOSE 20Gm/30ML SOLN PO SCH ×4 (05:58→18:10)
[2021-07-01] MEDS: InsuLIN REG 1unit/0.01ml Soln (100units/ml) SC SCH ×3 (06:00→17:29)
[2021-07-01] MEDS: INSULIN LANTUS (GLARGINE) 1 /0.01ml (100units/ml) SC SCH ×2 (06:01→21:49)
[2021-07-01] MEDS: ACCU-CHEK COMFORT CURVE STRIP VI SCH ×3 (06:01→17:25)
[2021-07-01 08:38] LABS: Potassium 3.8 mmol/L (3.5-5.1)
[2021-07-01 08:43] LABS: BUN/Creatinine Ratio 27.5; Calcium 9.7 mg/dL (8.5-10.1)
[2021-07-01] MEDS: SODIUM CHLOR 0.9% PF (SALINE LOCK) 10ML VIAL/SYR IV SCH ×2 (11:16→21:45)
[2021-07-01] MEDS: FAMOTIDINE (10MG/ML) 2ML VL IV SCH (11:16)
[2021-07-01] MEDS: FUROSEMIDE 20 MG/2 ML VIAL IV SCH (11:16)
[2021-07-01] MEDS: FLUCONAZOLE 200MG/100ML 100 ML IV SCH (11:17)
[2021-07-01] MEDS: fentaNYL Drip 2500mCg/250mlNS 250 ML IV SCH ×2 (11:43→23:32)
[2021-07-01] MEDS: ENOXAPARIN SOD 40 MG/0.4 ML SYRINGE SC SCH ×2 (14:28→21:44)
[2021-07-02] VITALS (108 sets, daily range): BP systolic 107–167; BP diastolic 65–97
[2021-07-02] MEDS: ACCU-CHEK COMFORT CURVE STRIP VI SCH ×5 (00:03→23:45)
[2021-07-02] MEDS: LACTULOSE 20Gm/30ML SOLN PO SCH ×5 (00:03→23:45)
[2021-07-02] MEDS: InsuLIN REG 1unit/0.01ml Soln (100units/ml) SC SCH ×6 (00:04→23:45)
[2021-07-02] MEDS: MIDAZOLAM DRIP 50 mg/50mL 50 ML IV SCH (01:45)
[2021-07-02] MEDS: NOREPINEPHRINE 8 MG/250ML KIT 250 ML IV SCH (01:45)
[2021-07-02] MEDS: DOXYCYCLINE 100MG/250ML 250 ML IV SCH ×2 (02:05→13:59)
[2021-07-02 04:38] LABS: Basophils # (auto) 0.1 10 ^3/uL (0-0.2); Basophils % (auto) 2.1 % (0.0-2.0); Eosinophils # (auto) 0.1 10 ^3/uL (0-0.8); Eosinophils % (auto) 2.1 % (0.0-7.0); Hematocrit 35.8 % (41.0-53.0); Hemoglobin 11.6 g/dL (13.5-17.5); Lymphocytes # (auto) 1.2 10 ^3/uL (0.4-5.4); Lymphocytes % (auto) 19.5 % (10.0-50.0); Mean Corpuscular Hemoglobin 27.9 pg (28.0-32.0); Mean Corpuscular Hgb Conc. 32.5 g/dL (32.0-36.0); Mean Corpuscular Volume 85.6 fL (80.0-100.0); Monocytes # (auto) 0.5 10 ^3/uL (0-1.3); Monocytes % (auto) 7.8 % (0.0-12.0); Neutrophils # (auto) 4.3 10 ^3/uL (1.6-8.6); Neutrophils % (auto) 68.5 % (37.0-80.0); Nucleated Red Blood Cells % 0.1 %; Red Blood Cells 4.17 10^6/uL (4.5-5.90); Red Cell Distribution Width 14.8 % (11.8-14.3); White Blood Cell 6.2 10^3/uL (4.4-10.8)
[2021-07-02 04:56] LABS: Potassium 4.1 mmol/L (3.5-5.1)
[2021-07-02 05:00] LABS: Calcium 9.6 mg/dL (8.5-10.1)
[2021-07-02] MEDS: NYSTATIN (MOUTH-THROAT) 500,000 UNITS/5 ML SUSP MT SCH ×2 (06:17→11:47)
[2021-07-02] MEDS: INSULIN LANTUS (GLARGINE) 1 /0.01ml (100units/ml) SC SCH ×2 (06:26→21:31)
[2021-07-02] MEDS: PROPOFOL 100 ML IV SCH ×6 (07:26→20:13)
[2021-07-02] MEDS: FUROSEMIDE 20 MG/2 ML VIAL IV SCH (09:52)
[2021-07-02] MEDS: SODIUM CHLOR 0.9% PF (SALINE LOCK) 10ML VIAL/SYR IV SCH ×2 (09:52→21:21)
[2021-07-02] MEDS: ENOXAPARIN SOD 40 MG/0.4 ML SYRINGE SC SCH (09:52)
[2021-07-02] MEDS: FAMOTIDINE (10MG/ML) 2ML VL IV SCH (09:52)
[2021-07-02] MEDS: FLUCONAZOLE 200MG/100ML 100 ML IV SCH ×2 (11:46→11:59)
[2021-07-02] MEDS: fentaNYL Drip 2500mCg/250mlNS 250 ML IV SCH (14:16)
[2021-07-02] MEDS: Nepro With Carb Steady 1 Liter Bottle GT SCH (14:52)
[2021-07-02] MEDS ORDERED: ENOXAPARIN SOD 60 MG/0.6 ML SYRINGE SC SCH (22:00)
[2021-07-03] VITALS (94 sets, daily range): BP systolic 87–174; BP diastolic 51–94
[2021-07-03] MEDS: PROPOFOL 100 ML IV SCH ×7 (00:28→23:56)
[2021-07-03] MEDS: NOREPINEPHRINE 8 MG/250ML KIT 250 ML IV SCH (01:15)
[2021-07-03] MEDS: MIDAZOLAM DRIP 50 mg/50mL 50 ML IV SCH (01:16)
[2021-07-03] MEDS: DOXYCYCLINE 100MG/250ML 250 ML IV SCH ×2 (01:20→14:41)
[2021-07-03 04:53] LABS: BUN/Creatinine Ratio 25.5; Calcium 9.4 mg/dL (8.5-10.1); Potassium 3.6 mmol/L (3.5-5.1)
[2021-07-03] MEDS: InsuLIN REG 1unit/0.01ml Soln (100units/ml) SC SCH ×4 (05:49→23:53)
[2021-07-03] MEDS: ACCU-CHEK COMFORT CURVE STRIP VI SCH ×4 (05:49→23:56)
[2021-07-03] MEDS: LACTULOSE 20Gm/30ML SOLN PO SCH ×2 (05:49→13:51)
[2021-07-03] MEDS: INSULIN LANTUS (GLARGINE) 1 /0.01ml (100units/ml) SC SCH ×2 (06:06→21:14)
[2021-07-03] MEDS: fentaNYL Drip 2500mCg/250mlNS 250 ML IV SCH ×2 (06:35→23:40)
[2021-07-03] MEDS: FAMOTIDINE (10MG/ML) 2ML VL IV SCH (10:11)
[2021-07-03] MEDS: FUROSEMIDE 20 MG/2 ML VIAL IV SCH ×2 (10:12→19:30)
[2021-07-03] MEDS: ENOXAPARIN SOD 40 MG/0.4 ML SYRINGE SC SCH ×2 (10:13→21:15)
[2021-07-03] MEDS: SODIUM CHLOR 0.9% PF (SALINE LOCK) 10ML VIAL/SYR IV SCH ×2 (10:16→21:15)
[2021-07-03] MEDS ORDERED: DEXTROSE (50%) 50ML SYRG IV PRN (14:30)
[2021-07-03] MEDS: FLUCONAZOLE 200MG/100ML 100 ML IV SCH (19:28)
[2021-07-04] VITALS (96 sets, daily range): BP systolic 79–182; BP diastolic 49–101
[2021-07-04] MEDS: NOREPINEPHRINE 8 MG/250ML KIT 250 ML IV SCH (01:31)
[2021-07-04] MEDS: MIDAZOLAM DRIP 50 mg/50mL 50 ML IV SCH (01:57)
[2021-07-04] MEDS: DOXYCYCLINE 100MG/250ML 250 ML IV SCH ×2 (01:57→14:15)
[2021-07-04] MEDS: PROPOFOL 100 ML IV SCH ×2 (03:27→07:59)
[2021-07-04 04:25] LABS: Basophils # (auto) 0.2 10 ^3/uL (0-0.2); Basophils % (auto) 2.5 % (0.0-2.0); Eosinophils # (auto) 0.5 10 ^3/uL (0-0.8); Eosinophils % (auto) 6.5 % (0.0-7.0); Hematocrit 37.2 % (41.0-53.0); Hemoglobin 12.1 g/dL (13.5-17.5); Lymphocytes # (auto) 1.9 10 ^3/uL (0.4-5.4); Lymphocytes % (auto) 22.5 % (10.0-50.0); Mean Corpuscular Hemoglobin 27.8 pg (28.0-32.0); Mean Corpuscular Hgb Conc. 32.5 g/dL (32.0-36.0); Mean Corpuscular Volume 85.6 fL (80.0-100.0); Monocytes # (auto) 0.9 10 ^3/uL (0-1.3); Monocytes % (auto) 11.1 % (0.0-12.0); Neutrophils # (auto) 4.8 10 ^3/uL (1.6-8.6); Neutrophils % (auto) 57.4 % (37.0-80.0); Nucleated Red Blood Cells % 0.1 %; Red Blood Cells 4.34 10^6/uL (4.5-5.90); Red Cell Distribution Width 14.6 % (11.8-14.3); White Blood Cell 8.4 10^3/uL (4.4-10.8)
[2021-07-04 04:46] LABS: Albumin 1.8 g/dL (3.4-5.0); Calcium 9.7 mg/dL (8.5-10.1); Potassium 3.5 mmol/L (3.5-5.1)
[2021-07-04 04:51] LABS: Bilirubin, Total 0.3 mg/dL (0.2-1.0); Total Protein 6.7 g/dL (6.4-8.2)
[2021-07-04] MEDS: InsuLIN REG 1unit/0.01ml Soln (100units/ml) SC SCH ×3 (05:02→17:52)
[2021-07-04] MEDS: ACCU-CHEK COMFORT CURVE STRIP VI SCH ×3 (05:03→17:48)
[2021-07-04] MEDS: FUROSEMIDE 20 MG/2 ML VIAL IV SCH ×2 (05:03→17:27)
[2021-07-04] MEDS: INSULIN LANTUS (GLARGINE) 1 /0.01ml (100units/ml) SC SCH ×2 (06:13→21:49)
[2021-07-04] MEDS: FAMOTIDINE (10MG/ML) 2ML VL IV SCH (09:30)
[2021-07-04] MEDS: SODIUM CHLOR 0.9% PF (SALINE LOCK) 10ML VIAL/SYR IV SCH ×2 (09:30→21:52)
[2021-07-04] MEDS: ENOXAPARIN SOD 40 MG/0.4 ML SYRINGE SC SCH ×2 (09:30→21:52)
[2021-07-04] MEDS: FLUCONAZOLE 200MG/100ML 100 ML IV SCH (11:44)
[2021-07-04] MEDS: hydrALAZINE HCL 20 MG/ML VL IV PRN (18:38)
[2021-07-04] MEDS ORDERED: ONDANSETRON HCL 4 MG/2 ML VIAL ONE (18:55)
[2021-07-05] VITALS (82 sets, daily range): BP systolic 110–161; BP diastolic 71–99
[2021-07-05] MEDS: ACCU-CHEK COMFORT CURVE STRIP VI SCH ×4 (00:19→17:53)
[2021-07-05] MEDS: InsuLIN REG 1unit/0.01ml Soln (100units/ml) SC SCH ×4 (00:19→17:53)
[2021-07-05] MEDS: DOXYCYCLINE 100MG/250ML 250 ML IV SCH ×2 (01:23→14:15)
[2021-07-05] MEDS: fentaNYL Drip 2500mCg/250mlNS 250 ML IV SCH (01:24)
[2021-07-05] MEDS: NOREPINEPHRINE 8 MG/250ML KIT 250 ML IV SCH (01:24)
[2021-07-05] MEDS: MIDAZOLAM DRIP 50 mg/50mL 50 ML IV SCH (01:24)
[2021-07-05 01:58] LABS: Hematocrit 38.5 % (41.0-53.0); Hemoglobin 12.9 g/dL (13.5-17.5)
[2021-07-05 04:36] LABS: Basophils # (auto) 0.1 10 ^3/uL (0-0.2); Basophils % (auto) 1.2 % (0.0-2.0); Eosinophils # (auto) 0.1 10 ^3/uL (0-0.8); Eosinophils % (auto) 0.7 % (0.0-7.0); Hematocrit 38.5 % (41.0-53.0); Hemoglobin 12.5 g/dL (13.5-17.5); Lymphocytes # (auto) 1.6 10 ^3/uL (0.4-5.4); Lymphocytes % (auto) 13.1 % (10.0-50.0); Mean Corpuscular Hemoglobin 27.3 pg (28.0-32.0); Mean Corpuscular Hgb Conc. 32.4 g/dL (32.0-36.0); Mean Corpuscular Volume 84.3 fL (80.0-100.0); Monocytes # (auto) 1.1 10 ^3/uL (0-1.3); Monocytes % (auto) 8.9 % (0.0-12.0); Neutrophils % (auto) 76.1 % (37.0-80.0); Red Blood Cells 4.56 10^6/uL (4.5-5.90); Red Cell Distribution Width 14.5 % (11.8-14.3); White Blood Cell 11.9 10^3/uL (4.4-10.8)
[2021-07-05 04:43] LABS: BUN/Creatinine Ratio 23.6; Calcium 9.9 mg/dL (8.5-10.1); Potassium 3.5 mmol/L (3.5-5.1)
[2021-07-05] MEDS: FUROSEMIDE 20 MG/2 ML VIAL IV SCH ×2 (06:02→17:53)
[2021-07-05] MEDS: INSULIN LANTUS (GLARGINE) 1 /0.01ml (100units/ml) SC SCH ×2 (06:05→21:52)
[2021-07-05] MEDS: SODIUM CHLOR 0.9% PF (SALINE LOCK) 10ML VIAL/SYR IV SCH ×2 (10:00→21:52)
[2021-07-05] MEDS: ENOXAPARIN SOD 40 MG/0.4 ML SYRINGE SC SCH ×2 (10:00→21:52)
[2021-07-05] MEDS: PROPOFOL 100 ML IV SCH (10:45)
[2021-07-05 11:18] LABS: Basophils # (auto) 0.1 10 ^3/uL (0-0.2); Basophils % (auto) 1.2 % (0.0-2.0); Eosinophils # (auto) 0.2 10 ^3/uL (0-0.8); Eosinophils % (auto) 1.4 % (0.0-7.0); Hematocrit 38.8 % (41.0-53.0); Hemoglobin 12.7 g/dL (13.5-17.5); Lymphocytes # (auto) 1.8 10 ^3/uL (0.4-5.4); Mean Corpuscular Hemoglobin 27.6 pg (28.0-32.0); Mean Corpuscular Hgb Conc. 32.7 g/dL (32.0-36.0); Mean Corpuscular Volume 84.6 fL (80.0-100.0); Monocytes % (auto) 8.4 % (0.0-12.0); Red Blood Cells 4.59 10^6/uL (4.5-5.90); Red Cell Distribution Width 14.4 % (11.8-14.3); White Blood Cell 12.2 10^3/uL (4.4-10.8)
[2021-07-05] MEDS: PANTOPRAZOLE 40 MG/10 ML VIAL INJ IV SCH ×2 (12:32→21:52)
[2021-07-05] MEDS: FLUCONAZOLE 200MG/100ML 100 ML IV SCH (12:32)
[2021-07-05 14:11] LABS: INR 1.1 (0.9-1.15)
[2021-07-06] VITALS (85 sets, daily range): BP systolic 109–166; BP diastolic 70–99
[2021-07-06] MEDS: NOREPINEPHRINE 8 MG/250ML KIT 250 ML IV SCH (02:00)
[2021-07-06] MEDS: fentaNYL Drip 2500mCg/250mlNS 250 ML IV SCH (02:00)
[2021-07-06] MEDS: MIDAZOLAM DRIP 50 mg/50mL 50 ML IV SCH (02:00)
[2021-07-06] MEDS: DOXYCYCLINE 100MG/250ML 250 ML IV SCH ×2 (02:15→14:38)
[2021-07-06 05:01] LABS: Basophils # (auto) 0.2 10 ^3/uL (0-0.2); Basophils % (auto) 1.4 % (0.0-2.0); Eosinophils # (auto) 0.3 10 ^3/uL (0-0.8); Eosinophils % (auto) 2.6 % (0.0-7.0); Hematocrit 40.1 % (41.0-53.0); Hemoglobin 12.7 g/dL (13.5-17.5); Lymphocytes # (auto) 2.1 10 ^3/uL (0.4-5.4); Lymphocytes % (auto) 18.1 % (10.0-50.0); Mean Corpuscular Hemoglobin 27.1 pg (28.0-32.0); Mean Corpuscular Hgb Conc. 31.6 g/dL (32.0-36.0); Mean Corpuscular Volume 85.7 fL (80.0-100.0); Monocytes # (auto) 1.1 10 ^3/uL (0-1.3); Monocytes % (auto) 9.4 % (0.0-12.0); Neutrophils # (auto) 7.9 10 ^3/uL (1.6-8.6); Neutrophils % (auto) 68.5 % (37.0-80.0); Red Blood Cells 4.68 10^6/uL (4.5-5.90); Red Cell Distribution Width 14.8 % (11.8-14.3); White Blood Cell 11.6 10^3/uL (4.4-10.8)
[2021-07-06] MEDS: FUROSEMIDE 20 MG/2 ML VIAL IV SCH ×2 (05:04→18:23)
[2021-07-06] MEDS: INSULIN LANTUS (GLARGINE) 1 /0.01ml (100units/ml) SC SCH ×2 (05:05→22:00)
[2021-07-06] MEDS: InsuLIN REG 1unit/0.01ml Soln (100units/ml) SC SCH ×4 (05:09→18:00)
[2021-07-06] MEDS: ACCU-CHEK COMFORT CURVE STRIP VI SCH ×4 (05:09→18:23)
[2021-07-06 05:25] LABS: INR 1.12 (0.9-1.15); Partial Thromboplastin Time 26.8 sec (23.6-33.0)
[2021-07-06 06:04] LABS: Bilirubin, Total 0.4 mg/dL (0.2-1.0); Calcium 9.6 mg/dL (8.5-10.1); Magnesium 2.4 mg/dL (1.6-2.6); Phosphorus 3.6 mg/dL (2.5-4.90); Total Protein 6.9 g/dL (6.4-8.2)
[2021-07-06] MEDS: POTASSIUM CHL 20MEQ/100ML 100 ML IV SCH ×3 (08:52→23:09)
[2021-07-06] MEDS: PANTOPRAZOLE 40 MG/10 ML VIAL INJ IV SCH ×2 (08:52→23:09)
[2021-07-06] MEDS: SODIUM CHLOR 0.9% PF (SALINE LOCK) 10ML VIAL/SYR IV SCH ×2 (09:25→22:00)
[2021-07-06] MEDS: ENOXAPARIN SOD 40 MG/0.4 ML SYRINGE SC SCH ×2 (09:25→22:00)
[2021-07-06] MEDS: FREE WATER GT SCH ×4 (09:25→22:00)
[2021-07-06] MEDS ORDERED: MIDAZOLAM HCL 5 MG/ML-1ML VIAL ONE (10:01)
[2021-07-06] MEDS ORDERED: fentaNYL CITRATE 100 MCG/2 ML VL ONE (10:02)
[2021-07-06] MEDS ORDERED: diphenhdrAMINE HCL 50 MG/1 ML VL ONE (10:02)
[2021-07-06] MEDS: PROPOFOL 100 ML IV SCH (10:45)
[2021-07-06] MEDS: FLUCONAZOLE 200MG/100ML 100 ML IV SCH (12:00)
[2021-07-06] MEDS: ONDANSETRON HCL 4 MG/2 ML VIAL IV PRN (15:57)
[2021-07-07] VITALS (97 sets, daily range): BP systolic 118–181; BP diastolic 78–107
[2021-07-07] MEDS: POTASSIUM CHL 20MEQ/100ML 100 ML IV SCH (00:57)
[2021-07-07] MEDS: FREE WATER GT SCH ×6 (02:00→22:05)
[2021-07-07] MEDS: fentaNYL Drip 2500mCg/250mlNS 250 ML IV SCH (02:00)
[2021-07-07] MEDS: NOREPINEPHRINE 8 MG/250ML KIT 250 ML IV SCH (02:00)
[2021-07-07] MEDS: MIDAZOLAM DRIP 50 mg/50mL 50 ML IV SCH (02:00)
[2021-07-07] MEDS: DOXYCYCLINE 100MG/250ML 250 ML IV SCH ×2 (02:37→14:19)
[2021-07-07] MEDS: ONDANSETRON HCL 4 MG/2 ML VIAL IV PRN ×2 (03:45→22:11)
[2021-07-07 04:15] LABS: Basophils # (auto) 0.2 10 ^3/uL (0-0.2); Basophils % (auto) 1.6 % (0.0-2.0); Eosinophils # (auto) 0.3 10 ^3/uL (0-0.8); Eosinophils % (auto) 3.1 % (0.0-7.0); Hematocrit 39.5 % (41.0-53.0); Hemoglobin 12.6 g/dL (13.5-17.5); Lymphocytes # (auto) 2.2 10 ^3/uL (0.4-5.4); Lymphocytes % (auto) 20.4 % (10.0-50.0); Mean Corpuscular Hemoglobin 27.1 pg (28.0-32.0); Mean Corpuscular Hgb Conc. 31.8 g/dL (32.0-36.0); Mean Corpuscular Volume 85.3 fL (80.0-100.0); Monocytes % (auto) 9.9 % (0.0-12.0); Neutrophils # (auto) 6.9 10 ^3/uL (1.6-8.6); Red Blood Cells 4.64 10^6/uL (4.5-5.90); Red Cell Distribution Width 14.5 % (11.8-14.3); White Blood Cell 10.6 10^3/uL (4.4-10.8)
[2021-07-07 04:30] LABS: INR 1.19 (0.9-1.15); Partial Thromboplastin Time 25.4 sec (23.6-33.0)
[2021-07-07 05:00] LABS: Anion Gap 9 (5-15); Blood Urea Nitrogen 56 mg/dL (7-18); Calcium 9.3 mg/dL (8.5-10.1); Carbon Dioxide 21 mmol/L (21-32); Chloride 119 mmol/L (98-107); Glucose 92 mg/dL (74-106); Magnesium 2.4 mg/dL (1.6-2.6); Potassium 3.6 mmol/L (3.5-5.1); Sodium 149 mmol/L (136-145)
[2021-07-07 05:02] LABS: Alanine Aminotransferase 76 U/L (16-61); Aspartate Aminotransferase 15 U/L (15-37); BUN/Creatinine Ratio 25.5; GFR African American 39 mL/min; GFR Non-African American 33 mL/min
[2021-07-07 05:07] LABS: Alkaline Phosphatase 205 U/L (45-117); Bilirubin, Total 0.5 mg/dL (0.2-1.0); Phosphorus 3.5 mg/dL (2.5-4.90); Total Protein 7.1 g/dL (6.4-8.2)
[2021-07-07] MEDS: FUROSEMIDE 20 MG/2 ML VIAL IV SCH (05:51)
[2021-07-07] MEDS: InsuLIN REG 1unit/0.01ml Soln (100units/ml) SC SCH ×5 (06:00→23:25)
[2021-07-07] MEDS: ACCU-CHEK COMFORT CURVE STRIP VI SCH ×5 (06:29→23:24)
[2021-07-07] MEDS: INSULIN LANTUS (GLARGINE) 1 /0.01ml (100units/ml) SC SCH ×2 (06:29→22:00)
[2021-07-07] MEDS: SODIUM CHLOR 0.9% PF (SALINE LOCK) 10ML VIAL/SYR IV SCH ×2 (09:37→22:05)
[2021-07-07] MEDS: PANTOPRAZOLE 40 MG/10 ML VIAL INJ IV SCH ×2 (09:47→22:05)
[2021-07-07] MEDS: ENOXAPARIN SOD 40 MG/0.4 ML SYRINGE SC SCH ×2 (09:47→22:06)
[2021-07-07] MEDS: PROPOFOL 100 ML IV SCH (10:45)
[2021-07-07] MEDS ORDERED: METOPROLOL TARTRATE 1MG/1ML-5ML VIAL IV PRN (12:15)
[2021-07-07] MEDS: FLUCONAZOLE 200MG/100ML 100 ML IV SCH (12:28)
[2021-07-07] MEDS ORDERED: CATHFLO ACTIVASE (ALTEPLASE) 2 MG VIAL IV ONE ×2 (15:00)
[2021-07-07] MEDS: MORPHINE SULFATE INJECTION 2 MG/ML SYRG IV PRN (22:12)
[2021-07-07] MEDS: LABETALOL HCL 5 MG/ML 4ML SYRINGE IV PRN (23:21)
[2021-07-08] VITALS (73 sets, daily range): BP systolic 82–182; BP diastolic 50–118
[2021-07-08] MEDS: DOXYCYCLINE 100MG/250ML 250 ML IV SCH ×2 (02:41→14:21)
[2021-07-08] MEDS: MORPHINE SULFATE INJECTION 2 MG/ML SYRG IV PRN (02:41)
[2021-07-08] MEDS: FREE WATER GT SCH ×6 (02:41→23:40)
[2021-07-08 03:29] LABS: BUN/Creatinine Ratio 23.4; Calcium 9.3 mg/dL (8.5-10.1); Potassium 3.5 mmol/L (3.5-5.1)
[2021-07-08] MEDS: LABETALOL HCL 5 MG/ML 4ML SYRINGE IV PRN ×3 (03:43→18:07)
[2021-07-08] MEDS: ACCU-CHEK COMFORT CURVE STRIP VI SCH ×4 (05:58→23:41)
[2021-07-08] MEDS: INSULIN LANTUS (GLARGINE) 1 /0.01ml (100units/ml) SC SCH ×2 (05:58→23:41)
[2021-07-08] MEDS: InsuLIN REG 1unit/0.01ml Soln (100units/ml) SC SCH ×4 (06:03→23:41)
[2021-07-08] MEDS: PANTOPRAZOLE 40 MG/10 ML VIAL INJ IV SCH ×2 (09:10→23:40)
[2021-07-08] MEDS: SODIUM CHLOR 0.9% PF (SALINE LOCK) 10ML VIAL/SYR IV SCH ×2 (09:11→22:00)
[2021-07-08] MEDS: ENOXAPARIN SOD 40 MG/0.4 ML SYRINGE SC SCH ×2 (09:11→23:40)
[2021-07-08] MEDS ORDERED: FUROSEMIDE 20 MG/2 ML VIAL IV SCH (10:00)
[2021-07-08] MEDS: FLUCONAZOLE 200MG/100ML 100 ML IV SCH (11:50)
[2021-07-08] MEDS ORDERED: MORPHINE SULFATE INJECTION 2 MG/ML SYRG IV PRN (15:15)
[2021-07-08] MEDS: LORazepam 2MG/ML-1ML VIAL IV PRN (16:27)
[2021-07-09] VITALS (66 sets, daily range): BP systolic 79–165; BP diastolic 49–103
[2021-07-09] MEDS: LORazepam 2MG/ML-1ML VIAL IV PRN ×3 (01:35→23:25)
[2021-07-09] MEDS: FREE WATER GT SCH ×6 (02:55→21:36)
[2021-07-09] MEDS: DOXYCYCLINE 100MG/250ML 250 ML IV SCH ×2 (02:56→14:15)
[2021-07-09 04:03] LABS: Calcium 9.1 mg/dL (8.5-10.1); Potassium 3.4 mmol/L (3.5-5.1)
[2021-07-09 04:07] LABS: BUN/Creatinine Ratio 22.8
[2021-07-09] MEDS: ACCU-CHEK COMFORT CURVE STRIP VI SCH ×3 (06:00→17:29)
[2021-07-09] MEDS: InsuLIN REG 1unit/0.01ml Soln (100units/ml) SC SCH ×3 (06:56→17:27)
[2021-07-09] MEDS: INSULIN LANTUS (GLARGINE) 1 /0.01ml (100units/ml) SC SCH ×2 (06:57→22:25)
[2021-07-09] MEDS: ENOXAPARIN SOD 40 MG/0.4 ML SYRINGE SC SCH ×2 (10:09→21:36)
[2021-07-09] MEDS: PANTOPRAZOLE 40 MG/10 ML VIAL INJ IV SCH ×2 (10:09→21:36)
[2021-07-09] MEDS: SODIUM CHLOR 0.9% PF (SALINE LOCK) 10ML VIAL/SYR IV SCH ×2 (10:09→21:36)
[2021-07-09] MEDS ORDERED: POTASSIUM EFFERVESENT TAB 25 MEQ GT ONE (11:45)
[2021-07-09] MEDS: FLUCONAZOLE 200MG/100ML 100 ML IV SCH (12:10)
[2021-07-10] VITALS (69 sets, daily range): BP systolic 74–157; BP diastolic 46–91
[2021-07-10] MEDS: InsuLIN REG 1unit/0.01ml Soln (100units/ml) SC SCH ×4 (00:36→17:19)
[2021-07-10] MEDS: ACCU-CHEK COMFORT CURVE STRIP VI SCH ×4 (00:37→17:19)
[2021-07-10] MEDS: DOXYCYCLINE 100MG/250ML 250 ML IV SCH ×2 (02:00→14:15)
[2021-07-10] MEDS: FREE WATER GT SCH ×6 (02:00→22:01)
[2021-07-10 04:16] LABS: Basophils # (auto) 0.1 10 ^3/uL (0-0.2); Basophils % (auto) 0.9 % (0.0-2.0); Eosinophils # (auto) 0.7 10 ^3/uL (0-0.8); Eosinophils % (auto) 7.5 % (0.0-7.0); Hematocrit 34.5 % (41.0-53.0); Hemoglobin 11.2 g/dL (13.5-17.5); Lymphocytes # (auto) 2.5 10 ^3/uL (0.4-5.4); Lymphocytes % (auto) 27.4 % (10.0-50.0); Mean Corpuscular Hemoglobin 28.2 pg (28.0-32.0); Mean Corpuscular Hgb Conc. 32.5 g/dL (32.0-36.0); Mean Corpuscular Volume 86.6 fL (80.0-100.0); Monocytes # (auto) 0.7 10 ^3/uL (0-1.3); Monocytes % (auto) 7.7 % (0.0-12.0); Neutrophils # (auto) 5.1 10 ^3/uL (1.6-8.6); Neutrophils % (auto) 56.5 % (37.0-80.0); Nucleated Red Blood Cells % 0.1 %; Red Blood Cells 3.99 10^6/uL (4.5-5.90); Red Cell Distribution Width 14.8 % (11.8-14.3)
[2021-07-10 04:36] LABS: INR 1.18 (0.9-1.15)
[2021-07-10 04:37] LABS: Calcium 8.9 mg/dL (8.5-10.1); Potassium 3.4 mmol/L (3.5-5.1)
[2021-07-10 04:40] LABS: BUN/Creatinine Ratio 24.8
[2021-07-10] MEDS: INSULIN LANTUS (GLARGINE) 1 /0.01ml (100units/ml) SC SCH ×2 (07:00→22:00)
[2021-07-10] MEDS: ENOXAPARIN SOD 40 MG/0.4 ML SYRINGE SC SCH ×2 (09:39→22:21)
[2021-07-10] MEDS: SODIUM CHLOR 0.9% PF (SALINE LOCK) 10ML VIAL/SYR IV SCH ×2 (09:40→22:02)
[2021-07-10] MEDS: PANTOPRAZOLE 40 MG/10 ML VIAL INJ IV SCH ×2 (09:47→22:21)
[2021-07-10] MEDS: FLUCONAZOLE 200MG/100ML 100 ML IV SCH (11:54)
[2021-07-10] MEDS: LORazepam 2MG/ML-1ML VIAL IV PRN (13:00)
[2021-07-10] MEDS ORDERED: SODIUM CHLORIDE LOCK 10 ML ONE (14:00)
[2021-07-10] MEDS ORDERED: diphenhdrAMINE HCL 50 MG/1 ML VL ONE (14:01)
[2021-07-10] MEDS: fentaNYL CITRATE 100 MCG/2 ML VL ONE ×2 (14:16→14:19)
[2021-07-10] MEDS: MIDAZOLAM HCL 5 MG/ML-1ML VIAL ONE ×2 (14:16→14:19)
[2021-07-10] MEDS ORDERED: POTASSIUM EFFERVESENT TAB 25 MEQ GT ONE (16:15)
[2021-07-11] VITALS (44 sets, daily range): BP systolic 79–169; BP diastolic 47–101
[2021-07-11] MEDS: ACCU-CHEK COMFORT CURVE STRIP VI SCH ×4 (00:22→17:28)
[2021-07-11] MEDS: FREE WATER GT SCH ×6 (02:10→21:43)
[2021-07-11] MEDS: DOXYCYCLINE 100MG/250ML 250 ML IV SCH ×2 (02:12→14:15)
[2021-07-11 05:38] LABS: BUN/Creatinine Ratio 22.1; Calcium 9.2 mg/dL (8.5-10.1); Potassium 3.5 mmol/L (3.5-5.1)
[2021-07-11] MEDS: InsuLIN REG 1unit/0.01ml Soln (100units/ml) SC SCH ×4 (06:00→17:28)
[2021-07-11] MEDS: INSULIN LANTUS (GLARGINE) 1 /0.01ml (100units/ml) SC SCH ×2 (07:00→22:03)
[2021-07-11] MEDS: ENOXAPARIN SOD 40 MG/0.4 ML SYRINGE SC SCH ×2 (10:00→21:42)
[2021-07-11] MEDS: PANTOPRAZOLE 40 MG/10 ML VIAL INJ IV SCH ×2 (10:00→21:42)
[2021-07-11] MEDS: SODIUM CHLOR 0.9% PF (SALINE LOCK) 10ML VIAL/SYR IV SCH ×2 (10:00→21:44)
[2021-07-11] MEDS: FLUCONAZOLE 200MG/100ML 100 ML IV SCH (12:00)
[2021-07-11] MEDS ORDERED: METOPROLOL TARTRATE 25 MG TAB GT ONE (15:30)
[2021-07-11] MEDS: METOPROLOL TARTRATE 25 MG TAB GT SCH (21:42)
[2021-07-12] VITALS (39 sets, daily range): BP systolic 113–168; BP diastolic 69–99
[2021-07-12] MEDS: ACCU-CHEK COMFORT CURVE STRIP VI SCH ×4 (00:20→18:00)
[2021-07-12] MEDS: InsuLIN REG 1unit/0.01ml Soln (100units/ml) SC SCH ×4 (00:21→18:00)
[2021-07-12] MEDS: FREE WATER GT SCH ×6 (02:00→22:15)
[2021-07-12] MEDS: DOXYCYCLINE 100MG/250ML 250 ML IV SCH ×2 (02:15→14:59)
[2021-07-12 04:24] LABS: Potassium 3.5 mmol/L (3.5-5.1)
[2021-07-12 04:30] LABS: BUN/Creatinine Ratio 18.4; Calcium 8.9 mg/dL (8.5-10.1)
[2021-07-12] MEDS: INSULIN LANTUS (GLARGINE) 1 /0.01ml (100units/ml) SC SCH ×2 (06:09→22:00)
[2021-07-12] MEDS: PANTOPRAZOLE 40 MG/10 ML VIAL INJ IV SCH ×2 (10:08→22:16)
[2021-07-12] MEDS: METOPROLOL TARTRATE 25 MG TAB GT SCH ×2 (10:08→22:16)
[2021-07-12] MEDS: SODIUM CHLOR 0.9% PF (SALINE LOCK) 10ML VIAL/SYR IV SCH ×2 (10:08→22:16)
[2021-07-12] MEDS: ENOXAPARIN SOD 40 MG/0.4 ML SYRINGE SC SCH ×2 (10:08→22:17)
[2021-07-12] MEDS: FLUCONAZOLE 200MG/100ML 100 ML IV SCH (11:59)
[2021-07-12] MEDS: HALOPERIDOL LACTATE 5 MG/ML INJ VIAL IM PRN (23:28)
[2021-07-13] VITALS (31 sets, daily range): BP systolic 120–159; BP diastolic 69–88
[2021-07-13] MEDS: ACCU-CHEK COMFORT CURVE STRIP VI SCH ×5 (00:39→23:35)
[2021-07-13] MEDS: DOXYCYCLINE 100MG/250ML 250 ML IV SCH ×2 (04:48→15:00)
[2021-07-13] MEDS: FREE WATER GT SCH ×6 (04:48→22:10)
[2021-07-13] MEDS: InsuLIN REG 1unit/0.01ml Soln (100units/ml) SC SCH ×5 (06:29→23:33)
[2021-07-13] MEDS: INSULIN LANTUS (GLARGINE) 1 /0.01ml (100units/ml) SC SCH ×2 (07:00→22:09)
[2021-07-13] MEDS: METOPROLOL TARTRATE 25 MG TAB GT SCH ×2 (10:00→22:12)
[2021-07-13] MEDS: PANTOPRAZOLE 40 MG/10 ML VIAL INJ IV SCH ×2 (10:00→22:04)
[2021-07-13] MEDS: ENOXAPARIN SOD 40 MG/0.4 ML SYRINGE SC SCH ×2 (10:00→22:04)
[2021-07-13] MEDS: SODIUM CHLOR 0.9% PF (SALINE LOCK) 10ML VIAL/SYR IV SCH ×2 (10:00→22:13)
[2021-07-13] MEDS: FLUCONAZOLE 200MG/100ML 100 ML IV SCH (12:00)
[2021-07-13] MEDS: HALOPERIDOL LACTATE 5 MG/ML INJ VIAL IM PRN (19:21)
[2021-07-13] MEDS: QUEtiapine FUMARATE 25 MG TAB PO SCH (22:13)
[2021-07-14] VITALS (47 sets, daily range): BP systolic 99–179; BP diastolic 57–113
[2021-07-14] MEDS: DOXYCYCLINE 100MG/250ML 250 ML IV SCH (01:50)
[2021-07-14] MEDS: FREE WATER GT SCH ×6 (01:50→21:50)
[2021-07-14 04:57] LABS: Basophils # (auto) 0.1 10 ^3/uL (0-0.2); Eosinophils # (auto) 0.4 10 ^3/uL (0-0.8); Eosinophils % (auto) 4.4 % (0.0-7.0); Hematocrit 34.1 % (41.0-53.0); Hemoglobin 11.1 g/dL (13.5-17.5); Lymphocytes # (auto) 1.7 10 ^3/uL (0.4-5.4); Lymphocytes % (auto) 20.4 % (10.0-50.0); Mean Corpuscular Hemoglobin 27.8 pg (28.0-32.0); Mean Corpuscular Hgb Conc. 32.6 g/dL (32.0-36.0); Mean Corpuscular Volume 85.4 fL (80.0-100.0); Monocytes # (auto) 0.9 10 ^3/uL (0-1.3); Monocytes % (auto) 10.2 % (0.0-12.0); Neutrophils # (auto) 5.4 10 ^3/uL (1.6-8.6); Red Blood Cells 3.99 10^6/uL (4.5-5.90); Red Cell Distribution Width 14.4 % (11.8-14.3); White Blood Cell 8.4 10^3/uL (4.4-10.8)
[2021-07-14 05:12] LABS: BUN/Creatinine Ratio 15.4; Calcium 8.7 mg/dL (8.5-10.1); Potassium 3.3 mmol/L (3.5-5.1)
[2021-07-14] MEDS: InsuLIN REG 1unit/0.01ml Soln (100units/ml) SC SCH ×4 (05:49→23:30)
[2021-07-14] MEDS: INSULIN LANTUS (GLARGINE) 1 /0.01ml (100units/ml) SC SCH ×2 (05:50→21:50)
[2021-07-14] MEDS: ACCU-CHEK COMFORT CURVE STRIP VI SCH ×4 (05:50→23:31)
[2021-07-14] MEDS: PANTOPRAZOLE 40 MG/10 ML VIAL INJ IV SCH ×2 (10:30→21:48)
[2021-07-14] MEDS: METOPROLOL TARTRATE 25 MG TAB GT SCH ×3 (10:31→22:49)
[2021-07-14] MEDS: ENOXAPARIN SOD 40 MG/0.4 ML SYRINGE SC SCH ×2 (10:32→21:48)
[2021-07-14] MEDS: SODIUM CHLOR 0.9% PF (SALINE LOCK) 10ML VIAL/SYR IV SCH ×2 (10:32→21:51)
[2021-07-14] MEDS: FLUCONAZOLE 200MG/100ML 100 ML IV SCH (12:59)
[2021-07-14] MEDS ORDERED: POTASSIUM EFFERVESENT TAB 25 MEQ GT ONE ×2 (14:00→14:30)
[2021-07-14] MEDS ORDERED: FUROSEMIDE 20 MG/2 ML VIAL IV ONE (14:30)
[2021-07-14] MEDS: Nepro With Carb Steady 1 Liter Bottle GT SCH (18:30)
[2021-07-14] MEDS: QUEtiapine FUMARATE 25 MG TAB PO SCH (21:48)
[2021-07-15] VITALS (33 sets, daily range): BP systolic 105–157; BP diastolic 52–93
[2021-07-15] MEDS: HALOPERIDOL LACTATE 5 MG/ML INJ VIAL IM PRN (00:12)
[2021-07-15] MEDS: FREE WATER GT SCH ×5 (01:59→19:14)
[2021-07-15 04:33] LABS: Basophils # (auto) 0 10 ^3/uL (0-0.2); Basophils % (auto) 0.4 % (0.0-2.0); Eosinophils # (auto) 0.4 10 ^3/uL (0-0.8); Eosinophils % (auto) 5.5 % (0.0-7.0); Hematocrit 34.8 % (41.0-53.0); Hemoglobin 11.4 g/dL (13.5-17.5); Lymphocytes # (auto) 1.7 10 ^3/uL (0.4-5.4); Lymphocytes % (auto) 20.6 % (10.0-50.0); Mean Corpuscular Hemoglobin 27.9 pg (28.0-32.0); Mean Corpuscular Hgb Conc. 32.8 g/dL (32.0-36.0); Monocytes # (auto) 0.8 10 ^3/uL (0-1.3); Monocytes % (auto) 10.4 % (0.0-12.0); Neutrophils # (auto) 5.1 10 ^3/uL (1.6-8.6); Neutrophils % (auto) 63.1 % (37.0-80.0); Red Blood Cells 4.09 10^6/uL (4.5-5.90); Red Cell Distribution Width 14.8 % (11.8-14.3)
[2021-07-15 04:42] LABS: Potassium 3.4 mmol/L (3.5-5.1)
[2021-07-15 04:50] LABS: Albumin 1.8 g/dL (3.4-5.0); BUN/Creatinine Ratio 13.8; Bilirubin, Total 0.3 mg/dL (0.2-1.0); Calcium 8.8 mg/dL (8.5-10.1); Total Protein 6.3 g/dL (6.4-8.2)
[2021-07-15] MEDS: InsuLIN REG 1unit/0.01ml Soln (100units/ml) SC SCH ×3 (06:26→18:58)
[2021-07-15] MEDS: INSULIN LANTUS (GLARGINE) 1 /0.01ml (100units/ml) SC SCH (06:27)
[2021-07-15] MEDS: ACCU-CHEK COMFORT CURVE STRIP VI SCH ×3 (06:27→18:55)
[2021-07-15] MEDS ORDERED: FUROSEMIDE 20 MG/2 ML VIAL IV SCH (10:00)
[2021-07-15] MEDS ORDERED: POTASSIUM EFFERVESENT TAB 25 MEQ GT SCH (10:00)
[2021-07-15] MEDS: ENOXAPARIN SOD 40 MG/0.4 ML SYRINGE SC SCH (10:30)
[2021-07-15] MEDS: SODIUM CHLOR 0.9% PF (SALINE LOCK) 10ML VIAL/SYR IV SCH (10:30)
[2021-07-15] MEDS: PANTOPRAZOLE 40 MG/10 ML VIAL INJ IV SCH (10:31)
[2021-07-15] MEDS ORDERED: POTASSIUM EFFERVESENT TAB 25 MEQ GT ONE (12:00)
[2021-07-15] MEDS: FLUCONAZOLE 200MG/100ML 100 ML IV SCH (12:47)
== END 2021-07-15 21:16 | DRG 4 ==
LOC: EDBD 21:45 → ER 21:47 → TELE 06-08 00:40 → ICU WEST 06-08 21:52
PROVIDERS: ADMIT Nurse Practitioner Family; ATTEND Internal Medicine
PROC: 05HM33Z Insertion of Infusion Device into Right Internal Jugular Vein, Percutaneous Approach (ICD-10-PCS; 2021-06-07)
PROC: 5A09357 Assistance with Respiratory Ventilation, Less than 24 Consecutive Hours, Continuous Positive Airway Pressure (ICD-10-PCS; 2021-06-07)
PROC: 5A1955Z Respiratory Ventilation, Greater than 96 Consecutive Hours (ICD-10-PCS; 2021-06-08)
PROC: 02HV33Z Insertion of Infusion Device into Superior Vena Cava, Percutaneous Approach (ICD-10-PCS; 2021-06-08)
PROC: 0BH17EZ Insertion of Endotracheal Airway into Trachea, Via Natural or Artificial Opening (ICD-10-PCS; 2021-06-08)
PROC: 5A1D70Z Performance of Urinary Filtration, Intermittent, Less than 6 Hours Per Day (ICD-10-PCS; 2021-06-12)
PROC: 05HB33Z Insertion of Infusion Device into Right Basilic Vein, Percutaneous Approach (ICD-10-PCS; 2021-06-18)
PROC: B54MZZA Ultrasonography of Right Upper Extremity Veins, Guidance (ICD-10-PCS; 2021-06-18)
PROC: 30233K1 Transfusion of Nonautologous Frozen Plasma into Peripheral Vein, Percutaneous Approach (ICD-10-PCS; 2021-06-19)
PROC: 0W9930Z Drainage of Right Pleural Cavity with Drainage Device, Percutaneous Approach (ICD-10-PCS; 2021-06-26)
PROC: 0B110F4 Bypass Trachea to Cutaneous with Tracheostomy Device, Open Approach (ICD-10-PCS; principal; 2021-06-26 12:48)
PROC: 0DJ08ZZ Inspection of Upper Intestinal Tract, Via Natural or Artificial Opening Endoscopic (ICD-10-PCS; 2021-07-06)
PROC: 0DH67UZ Insertion of Feeding Device into Stomach, Via Natural or Artificial Opening (ICD-10-PCS; 2021-07-07)
PROC: 0DJ08ZZ Inspection of Upper Intestinal Tract, Via Natural or Artificial Opening Endoscopic (ICD-10-PCS; 2021-07-10)
DX: A41.9 Sepsis, unspecified organism (principal); R65.21 Severe sepsis with septic shock; J96.01 Acute respiratory failure with hypoxia; J15.211 Pneumonia due to Methicillin susceptible Staphylococcus aureus; I50.31 Acute diastolic (congestive) heart failure; N17.0 Acute kidney failure with tubular necrosis; G93.41 Metabolic encephalopathy; I21.A1 Myocardial infarction type 2; Z99.11 Dependence on respirator [ventilator] status; G72.81 Critical illness myopathy; G93.1 Anoxic brain damage, not elsewhere classified; E87.0 Hyperosmolality and hypernatremia; Z68.41 Body mass index [BMI] 40.0-44.9, adult; I13.0 Hypertensive heart and chronic kidney disease with heart failure and stage 1 through stage 4 chronic kidney disease, or unspecified chronic kidney disease; J98.11 Atelectasis; N18.4 Chronic kidney disease, stage 4 (severe); K29.70 Gastritis, unspecified, without bleeding; E87.5 Hyperkalemia; K20.90 Esophagitis, unspecified without bleeding; E66.01 Morbid (severe) obesity due to excess calories; E11.65 Type 2 diabetes mellitus with hyperglycemia; Z20.822 Contact with and (suspected) exposure to COVID-19; E88.09 Other disorders of plasma-protein metabolism, not elsewhere classified; G47.30 Sleep apnea, unspecified; R31.9 Hematuria, unspecified; E11.21 Type 2 diabetes mellitus with diabetic nephropathy; I25.10 Atherosclerotic heart disease of native coronary artery without angina pectoris; R13.10 Dysphagia, unspecified; I48.91 Unspecified atrial fibrillation; E87.6 Hypokalemia; E78.5 Hyperlipidemia, unspecified; T78.3XXA Angioneurotic edema, initial encounter; Q38.2 Macroglossia; Z86.718 Personal history of other venous thrombosis and embolism
CPT/HCPCS: 31500; 36415; 36569; 36600; 43235; 51702; 70450; 71045; 73130; 74018; 76775; 80048; 80053; 80061; 80202; 81001; 82306; 82550; 82570; 82805; 82962; 83036; 83735; 83880; 84100; 84132; 84156; 84300; 84443; 84484; 84550; 85014; 85018; 85025; 85379; 85610; 85730; 86850; 86900; 86901; 87070; 87077; 87081; 87186; 87205; 87426; 93005; 93306; 93970; 94002; 94003; 94640; 94660; 94762; 95819; 96365; 96366; 96367; 96368; 96372; 96375; 96376; 97110; 97163; 97530; 99152; 99291; A4605; A4618; C9113; G0378; J0696; J1100; J1450; J1815; J2185; J2250; J2405; J2543; J2704; J3480; J3490; J7060; P9047